=== PATIENT | male | born 1970 | race Caucasian/White ===

== ENCOUNTER 2025-03-03 17:43 | Emergency (ER) | payer SELFPAY ==
[2025-03-03 17:56] VITALS: BP 123/86; PULSE 90; O2SAT 100
[2025-03-03 18:00] VITALS: BP 111/77; PULSE 85; RESP 20; TEMP 37; O2SAT 98; BMI 27.3
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
--- NOTE | 2025-03-03 19:11 | MHC.EDTECH ---
EKG DELAYED PATIENT NOT IN WAITING ROOM 1909
--- NOTE | 2025-03-03 19:21 | MHC.EDTECH ---
NO ANSWER ON SECOND CALL 1920
--- NOTE | 2025-03-03 19:45 | MHC.EDTECH ---
3RD CALL NO ANSWER 1944
== END 2025-03-03 20:14 | disposition left against medical advice (07) ==
PROVIDERS: Emergency Provider Emergency Medicine
DX: R10.9 Unspecified abdominal pain (principal)
CPT/HCPCS: 99281

== ENCOUNTER 2025-03-10 22:54 | Emergency (ER) | payer MEDICAID, SELFPAY ==
--- NOTE | 2025-03-10 | ECG_ITS ---
Test Reason : CHEST PAIN Blood Pressure : */* mmHG Vent. Rate : 86 BPM Atrial Rate : 86 BPM P-R Int : 170 ms QRS Dur : 78 ms QT Int : 364 ms P-R-T Axes : 72 8 66 degrees QTcB Int : 435 ms Normal sinus rhythm Normal ECG No previous ECGs available Referred By: Syd Hendrickson Electronically Signed By: BAKARI MULTANI MD
--- NOTE | ~2025-03-10 | XR_ITS ---
CLINICAL HISTORY: CP 1 view chest x-ray Comparison: None Findings: Lungs are clear without acute infiltrates. No pneumothorax. Heart size normal. No acute bony abnormalities. Impression: No acute processes This document has been electronically signed by: Alex Eisenberg MD on 03/11/2025 00:24:51
[2025-03-10 23:14] VITALS: BP 128/84; PULSE 91; RESP 18; TEMP 36.7; O2SAT 95; BMI 22.9
[2025-03-10 23:23] VITALS: BP 167/102; PULSE 115; O2SAT 99
[2025-03-10 23:24] VITALS: BP 117/78; PULSE 89; RESP 16; O2SAT 96
--- NOTE | 2025-03-10 23:25 | ED_ITS ---
HPI - Chest Pain General Chief Complaint: Chest Pain Stated Complaint: chest pain x2 hrs Time Seen by Provider: 03/10/25 23:12 Source: patient, EMS and health informatics advisor Mode of arrival: EMS Limitations: no limitations History of Present Illness ED Provider: DR. Hendrickson HPI narrative: 54-year-old male came in for evaluation of chest pain started after he smoked an unknown white powder that he bought from the street earlier today, pain was mid chest area with no radiation, was associated with some shortness of breath and anxiety, no fever, no chills, pain now is improving and subsiding still localized to the mid chest, no clear aggravating factor, no clear relieving factor, no known past medical history. History of remote drug use has been clean for many years. Related Data Allergies Allergy/AdvReac Type Severity Reaction Status Date / Time No Known Allergies Allergy Verified 03/10/25 23:23 Review of Systems 2 Review of Systems: All other systems are reviewed and are negative Constitutional: Reports as per HPI and Reports no additional constitutional complaints Eyes: Reports as per HPI and Reports no additional eye complaints Reports system reviewed and no additional complaints, except as documented Cardiovascular: Reports as per HPI and Reports no additional cardiovascular complaints Respiratory: Reports as per HPI and Reports no additional respiratory complaints Gastrointestinal: Reports as per HPI and Reports no additional gastrointestinal complaints Genitourinary: Reports no additional female genitourinary complaints Musculoskeletal: Reports no additional musculoskeletal complaints Skin/Breast: Reports system reviewed and no additional complaints, except as docu Psychiatric: Reports no additional psychiatric complaints Endocrine: Reports no additional endocrine complaints Hematologic/Lymphatic: Reports no additional hematologic/lymphatic complaints Allergic/Immunologic: Reports no additional allergic/immunologic complaints Reports system reviewed and no additional complaints, except as documented and Reports Abnormal speech present [facility] Social History Social History Smoked in Last 30 Days: No Use of substances other than those prescribed or required for medical reasons: Yes Substance Use Type: Unknown Advance Directives: No Advance Directives Information Provided: Yes Physical Exam 2 Vital Signs: Vital Signs: Last Vital Signs Temp 97.9 F 03/11/25 03:59 Pulse 62 03/11/25 03:59 Resp 20 03/11/25 03:59 BP 103/72 03/11/25 03:59 Pulse Ox 96 03/11/25 03:59 O2 Del Method Room Air 03/11/25 03:59 BMI result Body Mass Index 22.9 Vital signs have been reviewed and appear to be correct. Blood pressure elevated. Heart rate normal. Respiratory rate normal. Temperature normal. Oxygen saturation normal. Appearance: Alert. Oriented X3. No acute distress. Head: Normal external exam. Normocephalic. Atraumatic. No Rodrigues signs noted. No raccoon eyes noted Eyes: PERRLA. EOMI. Conjunctiva and sclera normal. Eyelids normal. ENT: TM's Normal. Pharynx normal. Uvula midline. Moist mucous membranes. No trismus noted. No drooling noted. No muffled voice noted. Neck: Normal inspection. Neck supple. FROM. No adenopathy. Thyroid Normal. No meningeal signs. No neck mass noted. CVS: Normal heart rate and rhythm. Heart sound normal. No murmurs noted. Pulses normal throughout. Respiratory: No respiratory distress. Painless inspiration. Breath sounds normal. No wheezes/rales/rhonchi noted. Chest nontender. No accessory muscle usage noted or decreased air movement noted. Abdomen: Soft and nontender. Bowel sounds normal in all 4 quadrants. No distention noted. No organomegaly noted. No visible injury noted. Back: No CVA tenderness. Full range of motion noted. Skin: Skin warm and dry. Normal skin color. Normal skin turgor. No rashes/lesions/lacerations noted. Extremities: No lower extremity edema. Extremities exhibit normal range of motion. Extremities nontender. Neuro: Oriented X 3. Cranial nerve exam: II-XII are grossly intact No motor deficit. No sensory deficit. Reflexes normal. Course Reevaluation(s) Reevaluation #1: Pain is much better now, patient was instructed to avoid drug use. Will reassure and discharge. Time: 03:15 Medical Decision Making Differential Diagnosis Differential Diagnoses: The differential diagnosis associated with the presentation includes (Drug induced ACS, pneumonia, pneumothorax, pleural effusion, electrolyte derangement, severe anemia, anxiety.) Admission/Observation Consideration of admission/observation: Escalation of care including admission/observation considered Lab Data MDM Lab Attestation statement: I reviewed the patient's lab results. 03/10/25 23:34 03/10/25 23:34 Labs: Lab Results 03/10/25 03/11/25 03/11/25 Range/Units 23:34 02:06 02:07 WBC 6.4 (4.8-10.8) X10*3/uL RBC 3.43 L (4.60-5.80) X10*6/uL Hgb 11.5 L (14.0-18.0) g/dl Hct 33.6 L (42.0-52.0) % MCV 98.0 (80.0-98.0) fL MCH 33.5 H (27.0-33.0) pg MCHC 34.2 (31.0-36.0) g/dl RDW 11.8 (11.0-16.0) % Plt Count 188 (160-400) X10*3/uL MPV 9.8 (9.4-12.4) fL Immature Gran % (Auto) 0.3 (0.0-0.4) % Neut % (Auto) 73.6 H (45-73) % Lymph % (Auto) 16.8 L (20-40) % [place] % (Auto) 7.3 (2-11) % Eos % (Auto) 1.7 (0-4) % Baso % (Auto) 0.3 (0-2) % Lymph # (Auto) 1.1 L (1.2-4.9) X10*3/uL [place] # (Auto) 0.5 (0.1-1.2) X10*3/uL Eos # (Auto) 0.1 (0.0-0.4) X10*3/uL Baso # (Auto) 0.0 (0.0-0.2) X10*3/uL Abs Immat Gran (auto) 0.02 (0.00-0.03) X10*3/uL Absolute Neuts (auto) 4.7 (2.0-8.3) x10*3/uL Absolute Nucleated RBC 0.000 (0.0-0.012) X10*3/uL Nucleated RBC % (auto) 0.0 (0.0-0.2) /100WBC Sodium 144 (135-145) mmol/L Potassium 3.5 (3.3-5.1) mmol/L Chloride 107 (96-108) mmol/L Carbon Dioxide 27 (22-29) mmol/L Anion Gap 14 (12-20) BUN 14 (9-16) mg/dL Creatinine 0.89 (0.5-1.4) mg/dL Estim Creat Clear Calc 95.4 Estimated GFR > 60 Random Glucose 153 H (60-115) mg/dL Calcium 8.6 (8.4-10.2) mg/dL Total Bilirubin 0.3 (0.0-1.0) mg/dL Direct Bilirubin 0.1 (0.0-0.5) mg/dL AST 23 (5-37) U/L ALT 14 (0-40) U/L Alkaline Phosphatase 80 (39-117) U/L Troponin I High Sens < 2.7 < 2.7 (<3.5-35.0) ng/L B-Natriuretic Peptide < 10 (<100) pg/mL Total Protein 6.8 (6.5-8.0) g/dL Albumin 3.7 (3.5-5.0) g/dL Lipase 17 (8-78) U/L Urine Color Yellow Urine Appearance Clear Urine pH 8.0 (5.0-9.0) Ur Specific [place] 1.020 (1.005-1.025) Urine Protein Negative (Neg-Trace) mg/dL Urine Glucose (UA) Negative (Negative) mg/dL Urine Ketones Negative (Negative) mg/dL Urine Blood Negative (Negative) Urine Nitrite Negative (Negative) Ur Leukocyte Esterase Negative (Negative) Digoxin < 0.2 L (0.8-2.0) ng/mL Influenza Type A (PCR) NEGATIVE (Negative) Influenza Type B (PCR) NEGATIVE (Negative) RSV RNA Qual (PCR) NEGATIVE (Negative) SARS-CoV-2 RNA (RT-PCR) NEGATIVE (Negative) Independent Interpretation I performed an independent interpretation of an: EKG (Normal sinus rhythm at 86 beats per minutes, normal intervals, no ST-T changes.) and Plain X-Ray (Chest: No acute intrathoracic pathology.) Radiology Impression Discussion of test interpretation with radiology: I have reviewed the radiologist's reading. Discharge Plan Discharge Clinical Impression: Chest pain, Substance use disorder Patient Disposition: Home, Self-Care Instructions: Polysubstance Use Disorder (ED) Print Language: Sami
[2025-03-10 23:41] LABS: Basophils Percent Auto 0.3 % (0-2); Eosinophils Absolute Auto 0.1 X10*3/uL (0.0-0.4); Eosinophils Percent Auto 1.7 % (0-4); Hematocrit 33.6 % (42.0-52.0); Hemoglobin 11.5 g/dl (14.0-18.0); Imm Gran Abs Auto 0.02 X10*3/uL (0.00-0.03); Imm Gran Pct Auto 0.3 % (0.0-0.4); Lymphocytes Absolute Auto 1.1 X10*3/uL (1.2-4.9); Lymphocytes Percent Auto 16.8 % (20-40); MANUAL DIFF FLAG NO; Mean Corpuscular HGB Conc 34.2 g/dl (31.0-36.0); Mean Corpuscular Hemoglobin 33.5 pg (27.0-33.0); Mean Platelet Volume 9.8 fL (9.4-12.4); Monocytes Absolute Auto 0.5 X10*3/uL (0.1-1.2); Monocytes Percent Auto 7.3 % (2-11); Neutrophils Absolute Auto 4.7 x10*3/uL (2.0-8.3); Neutrophils Percent Auto 73.6 % (45-73); Platelet Count 188 X10*3/uL (160-400); Red Blood Count 3.43 X10*6/uL (4.60-5.80); Red Cell Distribution Width 11.8 % (11.0-16.0); White Blood Count 6.4 X10*3/uL (4.8-10.8)
[2025-03-11 00:02] LABS: Alanine Aminotransferase 14 U/L (0-40); Albumin Level 3.7 g/dL (3.5-5.0); Alkaline Phosphatase 80 U/L (39-117); Anion Gap 14 (12-20); Aspartate Amino Transferase 23 U/L (5-37); Bilirubin Direct 0.1 mg/dL (0.0-0.5); Bilirubin Total 0.3 mg/dL (0.0-1.0); Blood Urea Nitrogen 14 mg/dL (9-16); Calcium 8.6 mg/dL (8.4-10.2); Carbon Dioxide 27 mmol/L (22-29); Chloride 107 mmol/L (96-108); Creatinine Clr Calc Pharmacy 95.4; Estimated Glomerular Filt Rate > 60; Glucose Random 153 mg/dL (60-115); Lipase 17 U/L (8-78); Potassium 3.5 mmol/L (3.3-5.1); Sodium 144 mmol/L (135-145); Total Protein 6.8 g/dL (6.5-8.0)
[2025-03-11 00:05] LABS: B Type Natriuretic Peptide < 10 pg/mL (<100)
[2025-03-11 00:10] LABS: Troponin-I High Sensitivity < 2.7 ng/L (<3.5-35.0)
[2025-03-11 00:19] LABS: Influenza A PCR NEGATIVE (Negative); Influenza B PCR NEGATIVE (Negative); Resp Syncy Virus RNA Qual PCR NEGATIVE (Negative); SARS COV2 PCR INHOUSE NEGATIVE (Negative)
[2025-03-11 02:15] LABS: Appearance Urine Clear; Color Urine Yellow; Glucose Urine UA Negative (Negative); Leukocyte Esterase Urine Negative (Negative); Nitrite Urine Negative (Negative); Urine Blood Negative (Negative); Urine Ketones Negative (Negative); Urine Protein Negative (Neg-Trace)
[2025-03-11 02:36] LABS: Troponin-I High Sensitivity < 2.7 ng/L (<3.5-35.0)
[2025-03-11 02:37] LABS: Digoxin < 0.2 ng/mL (0.8-2.0)
[2025-03-11 03:59] VITALS: BP 103/72; PULSE 62; RESP 20; TEMP 36.6; O2SAT 96
[2025-03-11 05:56] VITALS: BP 111/58; PULSE 80; RESP 16; TEMP 36.7; O2SAT 98
== END 2025-03-11 06:14 | disposition home or self-care (01) ==
PROVIDERS: Emergency Provider Emergency Medicine
DX: R07.89 Other chest pain (principal); R06.02 Shortness of breath; F41.9 Anxiety disorder, unspecified; F19.90 Other psychoactive substance use, unspecified, uncomplicated; Z03.818 Encounter for observation for suspected exposure to other biological agents ruled out
CPT/HCPCS: 0241U; 36415; 71045; 80048; 80076; 80162; 81003; 83690; 83880; 84484; 85025; 93005; 99284; 99285

== ENCOUNTER → 2025-03-10 23:12 | Outpatient (BNV) | payer MEDICAID, SELFPAY | PROVIDERS: Emergency Provider Emergency Medicine; Visit Provider Radiology Diagnostic Radiology | DX: R07.9 Chest pain, unspecified (principal) | CPT/HCPCS: 71045 ==

== ENCOUNTER → 2025-03-10 23:15 | Outpatient (BNV) | payer MEDICAID, SELFPAY | PROVIDERS: Emergency Provider Emergency Medicine; Visit Provider Internal Medicine Cardiovascular Disease | DX: R00.0 Tachycardia, unspecified (principal) | CPT/HCPCS: 93010 ==

== ENCOUNTER 2025-03-12 00:42 | Emergency (ER) | payer MEDICAID, SELFPAY ==
--- NOTE | 2025-03-12 | ECG_ITS ---
Test Reason : CP Blood Pressure : */* mmHG Vent. Rate : 115 BPM Atrial Rate : 115 BPM P-R Int : 186 ms QRS Dur : 76 ms QT Int : 324 ms P-R-T Axes : 71 3 73 degrees QTcB Int : 448 ms Sinus tachycardia Possible Left atrial enlargement Borderline ECG When compared with ECG of 10-Mar-2025 23:15, No significant change was found Referred By: Generic ED Physician Electronically Signed By: BAKARI MULTANI MD
[2025-03-12 00:51] VITALS: BP 150/91; PULSE 119; RESP 18; TEMP 37.6; O2SAT 97; BMI 22.0
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
--- NOTE | 2025-03-12 01:22 | ED_ITS ---
HPI - General Adult General Chief complaint: General Medical Stated complaint: CP Time Seen by Provider: 03/12/25 00:53 Related Data Allergies Allergy/AdvReac Type Severity Reaction Status Date / Time No Known Allergies Allergy Verified 03/12/25 00:54 [facility] Social History Social History Substance Use Type: Unknown Advance Directives: No Advance Directives Information Provided: Yes Physical Exam ED Vital Signs: Vital Signs - 24 hr 03/12/25 00:51 Temperature 99.6 F Pulse Rate 119 H Respiratory Rate 18 Blood Pressure 150/91 H Pulse Oximetry 97 Oxygen Delivery Method Room Air BMI result Body Mass Index 22.0 Course Course Course Narrative: The patient received an alarming phone call, he spontaneously burst into tears and ran out of the emergency room he was not assessed Discharge Plan Discharge Clinical Impression: Chest pain Patient Disposition: Left Without Being Seen
== END 2025-03-12 01:10 | disposition left against medical advice (07) ==
PROVIDERS: Emergency Provider Emergency Medicine; PCP Dentist General Practice
DX: R07.9 Chest pain, unspecified (principal); Z53.21 Procedure and treatment not carried out due to patient leaving prior to being seen by health care provider
CPT/HCPCS: 93005; 99281; 99283

== ENCOUNTER → 2025-03-12 00:44 | Outpatient (BNV) | payer MEDICAID, SELFPAY | PROVIDERS: Emergency Provider Emergency Medicine; PCP Dentist General Practice; Visit Provider Internal Medicine Cardiovascular Disease | DX: R00.0 Tachycardia, unspecified (principal) | CPT/HCPCS: 93010 ==

== ENCOUNTER 2025-03-18 09:58 | Emergency (ER) | payer MEDICAID, SELFPAY ==
--- NOTE | 2025-03-18 | ECG_ITS ---
Test Reason : CHEST PAIN Blood Pressure : */* mmHG Vent. Rate : 117 BPM Atrial Rate : 117 BPM P-R Int : 176 ms QRS Dur : 76 ms QT Int : 314 ms P-R-T Axes : 78 0 74 degrees QTcB Int : 438 ms Sinus tachycardia Nonspecific ST abnormality Abnormal ECG When compared with ECG of 12-Mar-2025 00:44, No significant change was found Referred By: Generic ED Physician Electronically Signed By: Fran Mock
--- NOTE | 2025-03-18 11:29 | PC.NURSE ---
pt had EKG and then left the ed.
--- OUTSIDE RECORDS SUMMARY | 2025-03-18 13:36 | XMS_ITS | Clinical Summary ---
Author Organization [facility] Address [address] [place] [address] Care Team Providers Care Housing Manager Name Role Phone Unavailable Primary Care Provider Unavailabl e Allergies No known active allergies Medications Hospital, Clinic, or Other Facility Administered Medication Ordered Dose Route Frequency Start Date End Date Status aspirin chewable tablet 324 mgIndications:Chest discomfort 324 mg PO Once 03/18/2025 03/18/2025 Ended Encounters Date Type Department Care Team Description 03/18/2025 9:40 AM EDT Office Visit [facility] [address] [place] [id number] Chest discomfort 03/18/2025 Travel 03/09/[address] [facility] [address] [place] [phone] Rahat Mcgraw MD NEW PT (Pt requesting new pt appt. Romanian speaking ) from Last 3 Months Social History Tobacco Use Types Packs/Day Years Used Date Smoking Tobacco: Never Assessed Sex and Gender Information Value Date Recorded Sex Assigned at Male 03/09/2025 12:09 PM EDT Legal Sex Male 1:07 PM EDT Gender Identity Male 03/09/2025 12:09 PM EDT Sexual Orientation Straight 03/09/2025 12 :09 PM EDT Last Filed Vital Signs Vital Sign Reading Time Taken Comments Blood Pressure 161/118 03/18/2025 9:15 AM EDT Pulse 138 03/18/2025 9:15 AM EDT Temperature - - Respiratory Rate - - Oxygen Saturation 97% 03/18/2025 9:15 AM EDT RA Inhaled Oxygen Concentration - - Weight - - Height - - Body Mass Index - - Plan of Treatment Upcoming Encounters Date Type Department Care Team ([facility] st Contact Info) Description 04/10/2025 9:30 AM EDT Office Visit [facility] [address] [place] [phone] Lisset Silva DO [address] [place] [address] [place] [address] Health Maintenance Due Date Last Done Comments CT Colonography 1971 Colonoscopy 1971 Colorectal Cancer Screening 1971 Depression Screening 1971 FIT DNA/Cologuard 1971 FIT 1971 FOBT 1971 HIV Screening 1971 Lipid Panel 1971 SDOH Screening 1971 Sigmoidoscopy 1971 Disability Screening 1971 Alcohol/Substance Use Screening 1983 Tobacco Screening 1983 Hepatitis C Screening 1989 Hepatitis B Vaccines (1 of 3 - 19+ 3-dose series) 1990 Pneumococcal Vaccine: 50+ Years (2 of 2 - PCV) 2021 06/07/2015, 06/29/2013, 11/16/2010 Zoster Vaccines (1 of 2) 2021 COVID-19 Vaccine (1 - 2023-2 5 season) 2024 Influenza Vaccine (#1) 2024 4, 07/13/2013, 11/16/2010 DTaP/Tdap/Td Vaccines (2 - T d or Tdap) 06/07/2025 06/07/2015 RSV Patients and Patients Aged 60 years or older (1 - 1-dose 75+ series) 2046 Meningococcal Vaccine Aged Out 01/08/2016 No esteban juan eligible based on patient's age to complete this topic HIB Vaccines Aged Out No longer eligi ble based on patient's age to complete this topic HPV Vaccines Aged Out No longer eligi ble based on patient's age to complete this topic Hepatitis A Vaccines Aged Out No long er eligible based on patient's age to complete this topic IPV Vaccines Aged Out No longer eligi ble based on patient's age to complete this topic Meningococcal B Vaccine Aged Out No l onger eligible based on patient's age to complete this topic RSV under 20 months Aged Out No longe r eligible based on patient's age to complete this topic Rotavirus Vaccines Aged Out No longer eligible based on patient's age to complete this topic [facility] MEDICAID STAND ADULT
--- OUTSIDE RECORDS SUMMARY | 2025-03-18 13:36 | XMS_ITS | Encounter Summary ---
Author Organization [facility] Address [address] [place] [address] Care Team Providers Care Operations Executive Name Role Phone Unavailable Primary Care Provider Unavailabl e Encounter Details Date Type Department Care Team (Latest Contact Info) Description 03/18/2025 Travel Social History Tobacco Use Types Packs/Day Years Used Date Smoking Tobacco: Never Assessed Sex and Gender Information Value Date Recorded Sex Assigned at Male 03/09/2025 12:09 PM EDT Legal Sex Male 1:07 PM EDT Gender Identity Male 03/09/2025 12:09 PM EDT Sexual Orientation Straight 03/09/2025 12 :09 PM EDT documented as of this encounter Plan of Treatment Upcoming Encounters Date Type Department Care Team (Late st Contact Info) Description 04/10/2025 9:30 AM EDT Office Visit [facility] [address] [place] [address] Lisset Silva DO [address] [place] [address] documented as of this encounter Visit Diagnoses Not on filedocumented in this encounter
--- OUTSIDE RECORDS SUMMARY | 2025-03-18 13:36 | XMS_ITS | Encounter Summary ---
Author Organization [employer] Address [address] [facility] 7[address] [place] [address] Care Team Providers Care Residential Sales Associate Name Role Phone Unavailable Primary Care Provider Unavailabl e Encounter Details Date Type Department Care Team (Late st Contact Info) Description 03/18/2025 9:40 AM EDT Office Visit [facility] [address] [place] [address] Chest discomfort Social History Tobacco Use Types Packs/Day Years Used Date Smoking Tobacco: Never Assessed Sex and Gender Information Value Date Recorded Sex Assigned at Male 03/09/2025 12:09 PM EDT Legal Sex Male 1:07 PM EDT Gender Identity Male 03/09/2025 12:09 PM EDT Sexual Orientation Straight 03/09/2025 12 :09 PM EDT documented as of this encounter Last Filed Vital Signs Vital Sign Reading Time Taken Comments Blood Pressure 161/118 03/18/2025 9:15 AM EDT Pulse 138 03/18/2025 9:15 AM EDT Temperature - - Respiratory Rate - - Oxygen Saturation 97% 03/18/2025 9:15 AM EDT RA Inhaled Oxygen Concentration - - Weight - - Height - - Body Mass Index - - documented in this encounter Plan of Treatment Upcoming Encounters Date Type Department Care Team (Late st Contact Info) Description 04/10/2025 9:30 AM EDT Office Visit [facility] [address] [place] [address] Lisset Silva DO [address] [place] [address] documented as of this encounter Visit Diagnoses Diagnosis Chest discomfort Other chest pain documented in this encounter Administered Medications Inactive Administered Medications - up to 3 most recent administrations Medication Order MAR Action Action Date Dose Rate Site aspirin chewable tablet 324 mg 324 mg, Oral, Once, On Sun03/18/25 at 0930, For 1 doseIndications:Chest discomfort Given 03/18/2025 9:23 AM EDT 324 mg documented in this encounter
== END 2025-03-18 12:55 | disposition left against medical advice (07) ==
PROVIDERS: Emergency Provider Emergency Medicine
DX: R07.89 Other chest pain (principal)
CPT/HCPCS: 93005; 99281; 99282

== ENCOUNTER → 2025-03-18 10:02 | Outpatient (BNV) | payer MEDICAID, SELFPAY | PROVIDERS: Emergency Provider Emergency Medicine; Visit Provider Internal Medicine Cardiovascular Disease | DX: R00.0 Tachycardia, unspecified (principal) | CPT/HCPCS: 93010 ==

== ENCOUNTER 2025-03-24 11:38 | Outpatient (REF) | payer MEDICAID, SELFPAY ==
--- OUTSIDE RECORDS SUMMARY | 2025-03-24 12:18 | XMS_ITS | Encounter Summary ---
Author Organization [employer] Address [address] [place] [address] Care Team Providers Care Junior Architect Name Role Phone Unavailable Primary Care Provider Unavailabl e Encounter Details Date Type Department Care Team (Latest Contact Info) Description 03/19/2025 1:00 PM EDT Clinical Support [facility] [address] [place] [address] Jenifer Bryan RN History of substance use Social History Tobacco Use Types Packs/Day Years Used Date Smoking Tobacco: Never Assessed Depression Answer Date Recorded Patient Health Questionnaire-9 Score 14 03/19/2025 Patient Health Questionnaire-9 Score 14 03/19/2025 Last PHQ-9: Questionnaire Data Not on file 0 03/19/2025 Depression Answer Date Recorded Patient Health Questionnaire-2 Score 5 03/19/2025 Sex and Gender Information Value Date Recorded Sex Assigned at Male 03/09/2025 12:09 PM EDT Legal Sex Male 1:07 PM EDT Gender Identity Male 03/09/2025 12:09 PM EDT Sexual Orientation Straight 03/09/2025 12 :09 PM EDT documented as of this encounter Progress Notes * Jenifer Bryan RN - 03/19/2025 1:00 PM EDT Patient was seen today by this poem writer and SALLY Oneal (supervisor international reservations) regarding referral received from Dr. Griffin after being seen in the [facility] yesterday for chest pain and palpitations after smoking cocaine and phenethyl that morning. Pt being assessed for need for OBAT. Patient denies any current or past hx of opioid use. His main concern is his cocaine addiction. He uses a couple of different dealers for the cocaine. Reviewed the risk of the cocaine also being laced with other substances such as fentanyl and risk of overdose. He is aware of the risk of cardiac arrest with cocaine useas well. He has an appointment with Dr. Hall on 04/10/25. Copy of upcoming appt given to the patient. He is attending a support group today at 2:00 p.m. We explained the role of the recovery coaches who provide support and encouragement during their recovery journey. Patient states he is gratefulfor any help we can provide. documented in this encounter Plan of Treatment Upcoming Encounters Date Type Department Care Team (Late st Contact Info) Description 04/10/2025 9:30 AM EDT Office Visit [facility] [address] [place] [address] Lisset Silva DO [address] [place] [address] documented as of this encounter Visit Diagnoses Diagnosis History of substance use documented in this encounter Additional Health Concerns Assessment Noted Time PHQ-9 Depression Total Score: 14 025 3:48 PM EDT documented as of this encounter
[2025-03-27 00:34] LABS: TS Negative Control Passed; TS Panel A 0; TS Panel B 0; TS Positive Control Passed; TSpotTB Negative (Negative)
== END 2025-03-24 11:39 | disposition home or self-care (01) ==
LOC: HO.HHCL 11:38
PROVIDERS: Visit Provider Internal Medicine
DX: Z11.1 Encounter for screening for respiratory tuberculosis (principal)
CPT/HCPCS: 36415; 86481

== ENCOUNTER 2025-04-14 16:56 | Emergency (ER) | payer MEDICAID, SELFPAY ==
[2025-04-14 17:11] VITALS: BP 124/76; PULSE 110; O2SAT 96
--- OUTSIDE RECORDS SUMMARY | 2025-04-14 18:49 | XMS_ITS | Encounter Summary ---
Author Organization [employer] Address [address] [facility] [address] [place] [address] Care Team Providers Care Reproductive Endocrinologist Name Role Phone Lisset Silva DO Primary Care Provider [phone] Reason for Visit * Reason Comments Establish Care Encounter Details Date Type Department Care Team ([facility] st Contact Info) Description 04/10/2025 9:30 AM EDT Office Visit [facility] [address] [place] [address] Lisset Silva DO [address] [place] [address] Routine history and physical examination of adult (Primary Dx); Major depression, recurrent, chronic (CMS/HCC); NERY (generalized anxiety disorder); Cocaine use disorder (CMS/HCC); Tobacco dependence; BMI 23.0-23.9, adult Social History Tobacco Use Types Packs/Day Years Used Date Smoking Tobacco: Former Cigarettes Passive Smoke Exposure: Past Smokeless Tobacco: Never Tobacco Cessation:Counseling Given: Not Answered Alcohol Use Standard Drinks/Week Comments Never 0 (1 standard drink = 0.6 oz pur e alcohol) Depression Answer Date Recorded Patient Health Questionnaire-9 Score 10 04/10/2025 Patient Health Questionnaire-9 Score 10 04/10/2025 Last PHQ-9: Questionnaire Data Not on file 0 04/10/2025 Housing Stability Answer Date Recorded What is your housing situation today? I do not have housing (Staying with others, in a hotel, in a halfway, living outside on the street, on a beach, in a car, or in a park 04/01/[address] you li ve. Do you have problems with any of the following? None of the above 04/01/2025 Food Insecurity Answer Date Recorded Within the past 12 months, y ou worried that your food would run out before you got money to buy more: Sometimes True 2024 Within the past 12 months,th e food you bought just didn't last and you didn't have enough money to get more: Sometimes True 04/01/2025 Transportation Answer Date Recorded In the past 12 months, has l ack of transportation kept you from medical appts, meetings, work or from getting things needed for daily living? No 04/01/2025 Utilities Answer Date Recorded In the past 12 months, has t he [employer], gas, oil or water company threatened to shut off services in your home? No 04/01/2025 Depression Answer Date Recorded Patient Health Questionnaire-2 Score 3 04/10/2025 Internet Access Answer Date Recorded Internet Access Q1 Yes 04/01/2025 Internet Access Q2 Not on file 04/01/2025 Sex and Gender Information Value Date Recorded Sex Assigned at Male 03/09/2025 12:09 PM EDT Legal Sex Male 1:07 PM EDT Gender Identity Male 03/09/2025 12:09 PM EDT Sexual Orientation Straight 03/09/2025 12 :09 PM EDT documented as of this encounter Last Filed Vital Signs Vital Sign Reading Time Taken Comments Blood Pressure 124/82 04/10/2025 9:34 AM EDT Pulse 88 04/10/2025 9:34 AM EDT Temperature 36.7 ??C (98 ??F) 04/10/2025 9:34 AM EDT Respiratory Rate 18 04/10/2025 9:34 AM EDT Oxygen Saturation - - Inhaled Oxygen Concentration - - Weight 70.9 kg (156 lb 3.2 oz) 04/10/2025 9:34 A M EDT Height 175.3 cm (5' 9 ) 04/10/2025 9:34 AM EDT Body Mass Index 23.07 04/10/2025 9:34 AM EDT documented in this encounter Functional Status * Over the past 2 weeks, how often have you been bothered by any of the following problems? Question Answer Date of Assessment Author Patient Health Questionnaire-2 Score 3 04/10/2025 2:10 PM EDT Jossy Schulte MA * Little interest or pleasure in doing things Answer Date of Assessment Author Several days 04/10/2025 2:10 PM EDT Jossy Washburn MA * Feeling down, depressed, or hopeless Answer Date of Assessment Author More than half the days 04/10/2025 2:10 PM EDT Jossy Moreno MA * Trouble falling or staying asleep, or sleeping too much Answer Date of Assessment Author Nearly every day 04/10/2025 2:10 PM EDT Jossy Munroe MA * Feeling tired or having little energy Answer Date of Assessment Author Not at all 04/10/2025 2:10 PM EDT Jossy Washburn MA * Poor appetite or overeating Answer Date of Assessment Author Not at all 04/10/2025 2:10 PM EDT Jossy Washburn MA * Feeling bad about yourself - or that you are a failure or have let yourself or your family down Answer Date of Assessment Author Not at all 04/10/2025 2:10 PM EDT Jossy Washburn MA * Trouble concentrating on things, such as reading the newspaper or watching television Answer Date of Assessment Author More than half the days 04/10/2025 2:10 PM EDT Jossy Moreno MA * Moving or speaking so slowly that other people could have noticed? Or the opposite - being so fidgety or restless that you have been moving around a lot more than usual. Answer Date of Assessment Author More than half the days 04/10/2025 2:10 PM EDT Jossy Moreno MA * Thoughts that you would be better off or hurting yourself in some way Answer Date of Assessment Author Not at all 04/10/2025 2:10 PM EDT Jossy Washburn MA * Patient Health Questionnaire-9 Score Answer Date of Assessment Author 10 04/10/2025 2:10 PM EDT Jossy Washburn MA * How difficult have these problems made it for you to do your work, take care of things at home, or get along with other people? Answer Date of Assessment Author Not difficult at all 04/10/2025 2:10 PM EDT Jossy Gomes MA * Over the last 2 weeks, how often have you been bothered by any of the following problems? Question Answer Date of Assessment Author Feeling nervous, anxious, or on edge 3 04/10/2025 2:10 PM EDT Jossy Schulte MA Not being able to stop or control worrying 2 04/10/2025 2:10 PM EDT Jossy Schulte MA Worrying too much about different things 0 04/10/2025 2:10 PM EDT Jossy Schulte MA Trouble relaxing 1 04/10/2025 2:10 PM EDT Jossy Moreno MA Being so restless that it is hard to sit still 1 04/10/2025 2:10 PM EDT Jossy Schulte MA Becoming easily annoyed or irritable 1 04/10/2025 2:10 PM EDT Jossy Schulte MA Feeling afraid as if something awful might happen 1 04/10/2025 2:10 PM EDT Jossy Munroe MA NERY-7 Total Score 9 04/10/2025 2:10 PM EDT Jossy Schulte MA documented as of this encounter Plan of Treatment Upcoming Encounters Date Type Department Care Team (Late st Contact Info) Description 05/18/2025 9:00 AM EDT Office Visit [facility] [address] [place] [address] Lisset Silva DO [address] [place] [address] Scheduled Orders Name Type Priority Associated Diagnoses Orde r Schedule T4, Free Lab Routine Routine history and physical examination of adult Major depression, recurrent, chronic (CMS/HCC) NERY (generalized anxiety disorder) Cocaine use disorder (CMS/HCC) Tobacco dependence BMI 23.0-23.9, adult Expected: 04/10/2025 (Approximate), Expires: 04/10/2026 Lipid Panel, Standard Lab Routine Routine history and physical examination of adult Major depression, recurrent, chronic (CMS/HCC) NERY (generalized anxiety disorder) Cocaine use disorder (CMS/HCC) Tobacco dependence BMI 23.0-23.9, adult Expected: 04/10/2025 (Approximate), Expires: 04/10/2026 TSH Lab Routine Routine history and physical examination of adult Major depression, recurrent, chronic (CMS/HCC) NERY (generalized anxiety disorder) Cocaine use disorder (CMS/HCC) Tobacco dependence BMI 23.0-23.9, adult Expected: 04/10/2025 (Approximate), Expires: 04/10/2026 Vitamin D, 25-Hydroxy, Total, Immunoassay Lab Routine Routine history and physical examination of adult Major depression, recurrent, chronic (CMS/HCC) NERY (generalized anxiety disorder) Cocaine use disorder (CMS/HCC) Tobacco dependence BMI 23.0-23.9, adult Expected: 04/10/2025 (Approximate), Expires: 04/10/2026 Hepatic Function Panel Lab Routine Routine history and physical examination of adult Major depression, recurrent, chronic (CMS/HCC) NERY (generalized anxiety disorder) Cocaine use disorder (CMS/HCC) Tobacco dependence BMI 23.0-23.9, adult Expected: 04/10/2025 (Approximate), Expires: 04/10/2026 Hemoglobin A1c Lab Routine Routine history and physical examination of adult Major depression, recurrent, chronic (CMS/HCC) NERY (generalized anxiety disorder) Cocaine use disorder (CMS/HCC) Tobacco dependence BMI 23.0-23.9, adult Expected: 04/10/2025 (Approximate), Expires: 04/10/2026 CBC Lab Routine Routine history and physical examination of adult Major depression, recurrent, chronic (CMS/HCC) NERY (generalized anxiety disorder) Cocaine use disorder (CMS/HCC) Tobacco dependence BMI 23.0-23.9, adult Expected: 04/10/2025, Expires: 04/10/2026 Basic Metabolic Panel Lab Routine Routine history and physical examination of adult Major depression, recurrent, chronic (CMS/HCC) NERY (generalized anxiety disorder) Cocaine use disorder (CMS/HCC) Tobacco dependence BMI 23.0-23.9, adult Expected: 04/10/2025 (Approximate), Expires: 04/10/2026 Hepatitis B surface antigen, EIA Lab Routine Routine history and physical examination of adult Major depression, recurrent, chronic (CMS/HCC) NERY (generalized anxiety disorder) Cocaine use disorder (CMS/HCC) Tobacco dependence BMI 23.0-23.9, adult Expected: 04/10/2025 (Approximate), Expires: 04/10/2026 Chlamydia/N. Gonorrhoeae RNA, TMA, Urogenitial Microbiology Routine Routine history and physical examination of adult Major depression, recurrent, chronic (CMS/HCC) NERY (generalized anxiety disorder) Cocaine use disorder (CMS/HCC) Tobacco dependence BMI 23.0-23.9, adult Ordered: 04/10/2025 HIV-1/2 Antigen and Antibodies, Fourth Generation, with Reflexes Lab Routine Routine history and physical examination of adult Major depression, recurrent, chronic (CMS/HCC) NERY (generalized anxiety disorder) Cocaine use disorder (CMS/HCC) Tobacco dependence BMI 23.0-23.9, adult Expected: 04/10/2025 (Approximate), Expires: 04/10/2026 Hepatitis C Antibody with Reflex to HCV, RNA, Quantitative, Real-Time PCR Lab Routine Routine history and physical examination of adult Major depression, recurrent, chronic (CMS/HCC) NERY (generalized anxiety disorder) Cocaine use disorder (CMS/HCC) Tobacco dependence BMI 23.0-23.9, adult Expected: 04/10/2025, Expires: 04/10/2026 RPR (Monitor) with Reflex to??Titer Lab Routine Routine history and physical examination of adult Major depression, recurrent, chronic (CMS/HCC) NERY (generalized anxiety disorder) Cocaine use disorder (CMS/HCC) Tobacco dependence BMI 23.0-23.9, adult Expected: 04/10/2025, Expires: 04/10/2026 Hepatitis B Surface Antibody, Qualitative Lab Routine Routine history and physical examination of adult Major depression, recurrent, chronic (CMS/HCC) NERY (generalized anxiety disorder) Cocaine use disorder (CMS/HCC) Tobacco dependence BMI 23.0-23.9, adult Expected: 04/10/2025 (Approximate), Expires: 04/10/2026 Varicella zoster antibody, IgG Lab Routine Routine history and physical examination of adult Major depression, recurrent, chronic (CMS/HCC) NERY (generalized anxiety disorder) Cocaine use disorder (CMS/HCC) Tobacco dependence BMI 23.0-23.9, adult Expected: 04/10/2025 (Approximate), Expires: 04/10/2026 Measles, Mumps, and Rubella (MMR) Antibodies??(IgG) Panel, Immune Status Lab Routine Routine history and physical examination of adult Major depression, recurrent, chronic (CMS/HCC) NERY (generalized anxiety disorder) Cocaine use disorder (CMS/HCC) Tobacco dependence BMI 23.0-23.9, adult Expected: 04/10/2025 (Approximate), Expires: 04/10/2026 Hepatitis A Antibody, Total Lab Routine Routine history and physical examination of adult Major depression, recurrent, chronic (CMS/HCC) NERY (generalized anxiety disorder) Cocaine use disorder (CMS/HCC) Tobacco dependence BMI 23.0-23.9, adult Expected: 04/10/2025 (Approximate), Expires: 04/10/2026 Hepatitis B Core Antibody, Total Lab Routine Routine history and physical examination of adult Major depression, recurrent, chronic (CMS/HCC) NERY (generalized anxiety disorder) Cocaine use disorder (CMS/HCC) Tobacco dependence BMI 23.0-23.9, adult Expected: 04/10/2025 (Approximate), Expires: 04/10/2026 documented as of this encounter Visit Diagnoses Diagnosis Routine history and physical examination of adult- Primary Major depression, recurrent, chronic (CMS/HCC) NERY (generalized anxiety disorder) Generalized anxiety disorder Cocaine use disorder (CMS/HCC) Tobacco dependence Tobacco use disorder BMI 23.0-23.9, adult documented in this encounter Additional Health Concerns Assessment Noted Time PHQ-9 Depression Total Score: 10 025 2:10 PM EDT documented as of this encounter Care Teams Reproductive Endocrinologist Relationship Specialty Start Date End Date Lisset Silva DO [address] [place] [id number] PCP - General Family Medicine 04/10/25 documented as of this encounter
== END 2025-04-14 18:24 | disposition left against medical advice (07) ==
PROVIDERS: Emergency Provider Emergency Medicine
DX: Z53.21 Procedure and treatment not carried out due to patient leaving prior to being seen by health care provider (principal); I10 Essential (primary) hypertension

== ENCOUNTER 2025-06-08 10:30 | Outpatient (REF) | payer MEDICAID, SELFPAY ==
--- NOTE | ~2025-06-08 | XR_ITS ---
EXAMINATION: XR ANKLE 3 OR MORE VIEWS LEFT HISTORY: PAIN COMPARISON: There are no prior studies available for comparison. FINDINGS: Three views of the left ankle are submitted. Osseous mineralization is normal. The patient is status post internal fixation of the medial malleolus. Two screws are seen in the talus. There is collapse of the talus. There is no fracture or dislocation. 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 The soft tissues are unremarkable. XR/XR ankle LT min 3V IMPRESSION: Post surgical changes as described. Collapse of the talus. Severe osteoarthritis of the tibiotalar articulation. Electronically signed by: Rubén Hanley MD 06/08/2025 12:11 PM EDT
--- OUTSIDE RECORDS SUMMARY | 2025-06-08 11:09 | XMS_ITS | Clinical Summary ---
Author Organization [facility] Address [address] [place] [address] Phone Care Team Providers Care Manager Food Safety Name Role Phone Physician, Pcp Unknown Primary Care Provider Di vailable Allergies No known active allergies Social History Tobacco Use Types Packs/Day Years Used Date Smoking Tobacco: Every Day Cigarettes Smokeless Tobacco: Never Tobacco Cessation:Ready to Q uit: Not Asked; Counseling Given: Not Answered Sex and Gender Information Value Date Recorded Sex Assigned at Male 01/24/2025 4:45 AM EDT Legal Sex Male 2:51 AM EDT Gender Identity Male 01/24/2025 4:45 AM EDT Sexual Orientation Choose not to disclose 2024 4:45 AM EDT Obstetrics History Last Filed Vital Signs Vital Sign Reading Time Taken Comments Blood Pressure 105/72 01/24/2025 8:41 AM EDT Pulse 68 01/24/2025 8:41 AM EDT Temperature 36.9 C (98.4 F) 01/24/2025 8:41 AM EDT Respiratory Rate 18 01/24/2025 8:41 AM EDT Oxygen Saturation 99% 01/24/2025 8:41 AM EDT Inhaled Oxygen Concentration - - Weight 81.2 kg (179 lb) 01/24/2025 8:41 AM EDT Height 177.8 cm (5' 10 ) 01/24/2025 8:41 AM EDT Body Mass Index 25.68 01/24/2025 8:41 AM EDT Plan of Treatment Health Maintenance Due Date Last Done Comments DTaP,Tdap,and Td Vaccines (1 - Tdap) 1990 Hepatitis B Vaccines (1 of 3 - 19+ 3-dose series) 1990 Pneumococcal Vaccine: 50+ Ye ars (1 of 2 - PCV) 1990 Zoster Vaccines (1 of 2) 2021 COVID-19 Vaccine (1 - 2023-2 5 season) 2024 Depression Screening 10/29/2024 Cholesterol Screening (Lipid Panel) 01/24/2025 Colorectal Cancer Screening: Colonoscopy 01/24/2025 HIV Screening 01/24/2025 Hepatitis C Screening 01/24/2025 Social Influencers of Health Screening 01/24/2025 Influenza Vaccine (#1) 2025 HIB Vaccines Aged Out No longer eligi [...] on patient's age to complete this topic MMR Vaccines Aged Out No longer eligi ble based on patient's age to complete this topic Meningococcal ACWY Vaccine Aged Out N o longer eligible based on patient's age to complete this topic Meningococcal B Vaccine Aged Out No l onger eligible based on patient's age to complete this topic RSV Immunization Patients Un tamanna 20 months Aged Out No longer eligible b ased on patient's age to complete this topic Varicella Vaccines Aged Out No longer eligible based on patient's age to complete this topic Additional Health Concerns Infection Onset Date Last Indicated Coronavirus 01/24/2025 01/24/2025 Insurance MEDICAID - [place] Care Teams Manager Food Safety Relationship Specialty Start Date End Date Physician, Pcp Unknown PCP - General 01/24/25
--- OUTSIDE RECORDS SUMMARY | 2025-06-08 11:09 | XMS_ITS | Encounter Summary ---
Author Organization [employer] Address [address] [place] [address] Care Team Providers Care Horseback Riding Instructor Name Role Phone Lisset Silva Primary Care Provider [phone] Encounter Details Date Type Department Care Team (Latest Contact Info) Description 06/08/2025 Travel Social History Tobacco Use Types Packs/Day Years Used Date Smoking Tobacco: Former Cigarettes Passive Smoke Exposure: Past Smokeless Tobacco: Never Alcohol Use Standard Drinks/Week Comments Never 0 (1 standard drink = 0.6 oz pur e alcohol) Depression Answer Date Recorded Patient Health Questionnaire-9 Score 4 04/27/2025 Patient Health Questionnaire-9 Score 4 04/27/2025 Last PHQ-9: Questionnaire Data Not on file 0 04/27/2025 Housing Stability Answer Date Recorded What is your housing situation today? I do not have housing (Staying with others, in a hotel, in a assisted, living outside on the street, on a [...] the past 12 months, has t he electric, gas, oil or water company threatened to shut off services in your home? No 04/01/2025 Depression Answer Date Recorded Patient Health Questionnaire-2 Score 0 04/27/2025 Internet Access Answer Date Recorded Internet Access Q1 Yes 04/01/2025 Internet Access Q2 Not on file 04/01/2025 Sex and Gender Information Value Date Recorded Sex Assigned at Male 03/09/2025 12:09 PM EDT Legal Sex Male 1:07 PM EDT Gender Identity Male 03/09/2025 12:09 PM EDT Sexual Orientation Straight 03/09/2025 12 :09 PM EDT documented as of this encounter Plan of Treatment Not on file documented as of this encounter Visit Diagnoses Not on filedocumented in this encounter Additional Health Concerns Assessment Noted Time PHQ-9 Depression Total Score: 4 04/27/20 25 12:28 PM EDT documented as of this encounter Care Teams Horseback Riding Instructor Relationship Specialty Start Date End Date Lisset Silva DO [address] [place] [address] PCP - General Family Medicine 04/10/25 documented as of this encounter
== END 2025-06-08 10:31 | disposition home or self-care (01) ==
LOC: HO.HHCX 10:30
PROVIDERS: PCP Family Medicine; Visit Provider Family Medicine
DX: Z98.890 Other specified postprocedural states (principal); Z87.81 Personal history of (healed) traumatic fracture
CPT/HCPCS: 73610

== ENCOUNTER → 2025-06-08 10:39 | Outpatient (BNV) | payer MEDICAID, SELFPAY | PROVIDERS: PCP Family Medicine; Visit Provider Radiology Diagnostic Radiology | DX: M19.072 Primary osteoarthritis, left ankle and foot (principal) | CPT/HCPCS: 73610 ==

== ENCOUNTER 2025-09-21 22:28 | Emergency (ER) | payer MEDICAID, SELFPAY ==
[2025-09-21 22:30] VITALS: BP 114/70; PULSE 101; RESP 20; TEMP 36.4; O2SAT 97; BMI 24.4
--- OUTSIDE RECORDS SUMMARY | 2025-09-21 22:51 | XMS_ITS | Clinical Summary ---
Author Organization [employer] Address [address] [place] [address] Care Team Providers Care Software Asset Management Analyst Name Role Phone Lisset Silva Primary Care Provider Allergies No known active allergies Medications * This document contains information received from the source organization and may not represent a complete record from that organization. fluticasone (Flonase) 50 MCG/ACT nasal sprayIndication s:Acute non-recurrent maxillary sinusitis Administer 1 spray into each nostril Once per day. Shake gently. Before first use, prime pump. After use, clean tip and replace cap. 16 g 2 5 03/24/20 26 Active cetirizine (ZyrTEC) 10 MG tabletIndicatio ns:Acute non-recurrent maxillary sinusitis Take 1 tablet (10 mg) by mouth Once per day. 30 tablet 2 5 Active sertraline (Zoloft) 25 MG tablet Take 1 tablet (25 mg) by mouth Once per day. 30 tablet 2 5 04/10/20 26 Active hydrOXYzine pamoate (Vistaril) 25 MG capsule Take 1 capsule (25 mg) by mouth every 6 (six) hours if needed for anxiety. 30 capsule 2 5 04/10/20 26 Active Diclofenac Sodium 1 % gel Apply 2 g topically if needed in the morning, at noon, in the evening, and at bedtime (pain). 150 g 3 5 Active naproxen (Naprosyn) 500 MG tablet Take 1 tablet (500 mg) by mouth if needed in the morning and at bedtime for mild pain. 40 tablet 1 5 06/08/20 26 Active acetaminophen (Tylenol 8 Hour) 650 MG ER tablet Take 1 tablet (650 mg) by mouth every 8 (eight) hours if needed for mild pain. Do not crush, chew, or split. 50 tablet 2 5 06/08/20 Active docusate sodium (Colace) 100 MG capsule Take 1 capsule (100 mg) by mouth 2 times daily. 180 capsule 3 5 06/08/20 26 Active polycarbophil (Fibercon) 625 MG tablet Take 1 tablet (625 mg) by mouth 2 times daily. 180 tablet 3 5 06/08/20 26 Active polyethylene glycol, PEG, 3350 (MiraLax) 17 GM/SCOOP powder Take 17 g by mouth if needed each day (constipation). 527 g 2 5 06/08/20 26 Active Active Problems Problem Noted Date Diagnosed Date Status post ORIF of fracture of ankle 06/08/2025 Tobacco dependence 04/10/2025 Seasonal allergies 04/10/2025 Chronic pain of left ankle 03/24/2025 Major depression, recurrent, chronic 03/19/2025 Generalized anxiety disorder 03/19/2025 Cocaine use disorder (CMS/HCC) 03/19/2025 Resolved Problems Problem Noted Date Diagnosed Date Resolved Date Acute maxillary sinusitis 03/24/2025 Assessment & Plan (03/24/2025 12:04 PM EDT): I instructed patient if symptoms persist or worsen to report back Tuberculosis screening 03/24/202504/10 Chest discomfort 03/18/2025 04/10/2025 Assessment & Plan (03/18/2025 2:50 PM EDT): PT emergently transferred to ER for r/o ACS in setting of recent cocaine use, tachycardia and chest pain. He will return to establish care. Pt left with ambulance. Elevated blood pressure reading 03/18/2025 04/10/2025 Encounters Date Type Department Care Team Description 06/23/2025 Patient Outreach [facility] [address] [place] [address] [place] Recovery Supports 06/23/2025 Patient Outreach [facility] [address] [place] [address] [place] Recovery Supports from Last 3 Months Immunizations Immunization Administration Dates Next Due Influenza, Unspecified 09/23/2014,07/13/2013, Meningococcal MCV4P [id number] 01/08/2016 Pneumococcal Polysaccharide PPSV23 06/07/2015,,11/16/2010 Tdap 06/07/2015 Family History Medical History Relation Name Comments No Known Problems Father Hypertension Mother No Known Problems Sister Relation Name Status Comments Father Mother Sister Social History Tobacco Use Types Packs/Day Years [...] with others, in a hotel, in a residential, living outside on the street, on a [...] Sign Reading Time Taken Comments Blood Pressure 122/70 06/08/2025 10:02 AM EDT Pulse 82 06/08/2025 10:02 AM EDT Temperature 36.6 C (97.9 F) 06/08/2025 10:02 AM EDT Respiratory Rate 21 06/08/2025 10:02 AM EDT Oxygen Saturation 98% 06/08/2025 10:02 AM EDT Inhaled Oxygen Concentration - - Weight 73 kg (161 lb) 06/08/2025 10:02 AM EDT Height 175.3 cm (5' 9 ) 06/08/2025 10:02 AM EDT Body Mass Index 23.78 06/08/2025 10:02 AM EDT Plan of Treatment Health Maintenance Due Date Last Done Comments CT Colonography 1971 Colonoscopy 1971 Colorectal Cancer Screening 1971 Dental Oral Exam 1971 Dental Prophylaxis 1971 Dental X-Ray: Bitewings 1971 FIT DNA/Cologuard 1971 FIT 1971 FOBT 1971 HIV Screening 1971 Lipid Panel 1971 Sigmoidoscopy 1971 Hepatitis C Screening 1989 Hepatitis B Vaccines (1 of 3 - 19+ 3-dose series) 1990 Pneumococcal Vaccine: 50+ Years (2 of 2 - PCV) 06/07/2016 06/07/2015, 06/29/2013, 11/16/2010 RSV Patients and Patients Aged 60 years or older (1 - Risk 50-74 years 1-dose series) 2021 Zoster Vaccines (1 of 2) 2021 COVID-19 Vaccine (1 - 2024-2 6 season) 2025 Influenza Vaccine (#1) 2025 4, 07/13/2013, 11/16/2010 SDOH Screening 04/01/2026 04/01/2025 Alcohol/Substance Use Screening 04/10/2026 04/10/2025 Depression Screening 04/27/2026 04/27/2025, 04/27/2025 Disability Screening 06/08/2026 06/08/2025 Tobacco Screening 06/08/2026 06/08/2025 Dental X-Ray: Full Mouth 01/15/2028 01/13/2025 DTaP/Tdap/Td Vaccines (3 - T d or Tdap) 04/25/2030 04/25/2020, 06/07/2015 Meningococcal Vaccine Aged Out 01/08/2016 No esteban juan eligible based on patient's age to complete this topic Hepatitis A Vaccines Aged Out 04/23/2019 No long er eligible based on patient's [...] patient's age to complete this topic Insurance [facility] [place] AD[place] Care Teams Software Asset Management Analyst Relationship Specialty Start Date End Date Lisset Silva DO [address] [place] [id number] PCP - General Family Medicine 04/10/25
--- OUTSIDE RECORDS SUMMARY | 2025-09-21 22:51 | XMS_ITS | Clinical Summary ---
Author Organization [facility] Address [address] [place] [address] Phone Care Team Providers Care Manager Paper Name Role Phone Physician, Pcp Unknown Primary [...] Health Maintenance Due Date Last Done Comments Colorectal Cancer Screening: Colonoscopy 1971 DTaP,Tdap,and Td Vaccines (1 - Tdap) 1990 Hepatitis B Vaccines (1 of 3 - 19+ 3-dose series) 1990 Pneumococcal Vaccine: 50+ Ye ars (1 of 2 - PCV) 1990 Zoster Vaccines (1 of 2) 2021 Depression Screening 10/29/2024 Cholesterol Screening (Lipid Panel) 01/24/2025 HIV Screening 01/24/2025 Hepatitis C Screening 01/24/2025 Social Influencers of Health Screening 01/24/2025 COVID-19 Vaccine (1 - 2024-2 6 season) 2025 Influenza Vaccine (#1) 2025 RSV Immunization Adult Patie nts (1 - 1-dose 75+ series) 2046 HIB Vaccines Aged Out No longer eligi [...] Insurance MEDICAID - [place] Care Teams Manager Paper Relationship Specialty Start Date End Date Physician, Pcp Unknown PCP - General 01/24/25
--- NOTE | 2025-09-21 23:01 | ECG_ITS ---
Test Reason : abdominal pain Blood Pressure : */* mmHG Vent. Rate : 91 BPM Atrial Rate : 91 BPM P-R Int : 168 ms QRS Dur : 74 ms QT Int : 334 ms P-R-T Axes : 68 4 53 degrees QTcB Int : 410 ms Normal sinus rhythm Diffuse ST elevations-consider pericarditis. Abnormal ECG When compared with ECG of 18-Mar-2025 10:02, ST elevation now present in Anterolateral leads Referred By: Barbie Haas Electronically Signed By: Fran Mock
[2025-09-21 23:17] LABS: MANUAL DIFF FLAG NO
[2025-09-21 23:18] LABS: Hematocrit 41.3 % (42.0-52.0); Hemoglobin 14.1 g/dl (14.0-18.0); Imm Gran Abs Auto 0.02 X10*3/uL (0.00-0.03); Imm Gran Pct Auto 0.2 % (0.0-0.4); Lymphocytes Absolute Auto 0.9 X10*3/uL (1.2-4.9); Mean Corpuscular HGB Conc 34.1 g/dl (31.0-36.0); Mean Corpuscular Hemoglobin 33.4 pg (27.0-33.0); Mean Corpuscular Volume 97.9 fL (80.0-98.0); NRBC Abs Auto 0.000 X10*3/uL (0.0-0.012); NRBC Pct Auto 0.0 /100WBC (0.0-0.2); Platelet Count 212 X10*3/uL (160-400); Red Blood Count 4.22 X10*6/uL (4.60-5.80); White Blood Count 8.8 X10*3/uL (4.8-10.8)
--- NOTE | 2025-09-21 23:22 | ED_ITS ---
HPI - Abdominal Pain General Chief Complaint: Abdominal Pain Stated Complaint: Stomach Pain Time Seen by Provider: 09/21/25 22:40 History of Present Illness ED Provider: Barbie Haas HPI narrative: 55-year-old male PMH substance use presents to the ED for evaluation reporting epigastric abdominal pain that began around 7:00 p.m. after having dinner. He reports having fries, and gravy, and meat for dinner. The pain began shortly after, he had to stop eating as he endorses a sensation of fullness. Some nausea, no vomiting, diarrhea, constipation. No fever, chills. No urinary complaints. Denies any substernal chest pain or pressure, palpitations, or shortness of breath. No recent illnesses. Does report similar episodes of this in the past. Related Data Previous Rx's ?Medication ?Instructions ?Recorded pantoprazole 40 mg tablet,delayed 40 mg PO DAILY 30 da ys #30 tabs 09/22/25 release (Protonix) Allergies Allergy/AdvReac Type Severity Reaction Status Date / Time No Known Allergies Allergy Verified 09/21/25 22:38 Review of Systems Review of Systems ROS is otherwise negative unless mentioned in HPI. [facility] Social History Social History (System 03/25/25 @ 13:33 by Nessa Park) Substance Use Type: Unknown Advance Directives: No Advance Directives Information Provided: No Physical Exam ED Exam Exam: Nursing notes and vital signs reviewed. Constitutional: Well-appearing, NAD. Alert. Oriented X3. Eyes: EOMI. ENT: Pharynx normal. Neck: Normal inspection. Neck supple. CVS: Normal heart rate and rhythm. Pulses normal. Respiratory: No respiratory distress. Breath sounds normal. Abdomen: Soft and nontender. Nondistended. +BSx4. Skin: Skin warm and dry. Normal skin color. Extremities: No lower extremity edema. Neuro: Oriented X 3. No motor deficit. Vital Signs: Vital Signs - 24 hr 09/21/25 22:30 09/22/25 00:22 Temperature 97.6 F 97.9 F Pulse Rate 101 H 67 Respiratory Rate 20 18 Blood Pressure 114/70 113/75 Pulse Oximetry 97 99 Oxygen Delivery Method Room Air Room Air BMI result Body Mass Index 24.4 Medical Decision Making Medical Decision Making [facility] Narrative: Upon my assessment of this patient, he overall appears well. He answers questions appropriately. The agricultural crop farm manager services were utilized given his primary language is Kenyan. His abdominal exam is benign. It appears that he developed the pain after eating, and likely this is acute reflux disease as he describes it as burning. We will administer a PPI, antiemetic, IV fluid bolus and obtain basic labs, EKG and reassess. 0054-- patient reported significant improvement after antiemetic, IV fluids. His lab work was overall reassuring in comparison to previous. Urinalysis with no signs of infection. Plan to discharge home with outpatient follow up with Gastroenterology, a PCP. I will also send a prescription for Protonix given the likely GERD related symptoms. Patient agreeable to plan of care. Differential Diagnosis Differential Diagnoses: The differential diagnosis associated with the presentation includes Gastroenteritis, gastritis, GERD, ACS, mi Admission/Observation Consideration of admission/observation: Escalation of care including admission/observation considered (Not indicated) Lab Data MDM Lab Attestation statement: I reviewed the patient's lab results. 09/21/25 23:11 09/21/25 23:11 Labs: Lab Results 09/21/25 Range/Units 23:11 WBC 8.8 (4.8-10.8) X10*3/uL RBC 4.22 L D (4.60-5.80) X10*6/uL Hgb 14.1 D (14.0-18.0) g/dl Hct 41.3 L D (42.0-52.0) % MCV 97.9 (80.0-98.0) fL MCH 33.4 H (27.0-33.0) pg MCHC 34.1 (31.0-36.0) g/dl RDW 11.2 (11.0-16.0) % Plt Count 212 (160-400) X10*3/uL MPV 9.9 (9.4-12.4) fL Immature Gran % (Auto) 0.2 (0.0-0.4) % Neut % (Auto) 82.4 H (45-73) % Lymph % (Auto) 10.6 L (20-40) % [place]igo % (Auto) 6.5 (2-11) % Eos % (Auto) 0.1 (0-4) % Baso % (Auto) 0.2 (0-2) % Lymph # (Auto) 0.9 L (1.2-4.9) X10*3/uL [place] # (Auto) 0.6 (0.1-1.2) X10*3/uL Eos # (Auto) 0.0 (0.0-0.4) X10*3/uL Baso # (Auto) 0.0 (0.0-0.2) X10*3/uL Abs Immat Gran (auto) 0.02 (0.00-0.03) X10*3/uL Absolute Neuts (auto) 7.3 (2.0-8.3) x10*3/uL Absolute Nucleated RBC 0.000 (0.0-0.012) X10*3/uL Nucleated RBC % (auto) 0.0 (0.0-0.2) /100WBC Sodium 140 (135-145) mmol/L Potassium 4.1 (3.3-5.1) mmol/L Chloride 107 (96-108) mmol/L Carbon Dioxide 26 (22-29) mmol/L Anion Gap 11 L (12-20) BUN 13 (9-16) mg/dL Creatinine 0.96 (0.5-1.4) mg/dL Estim Creat Clear Calc 87.9 Estimated GFR > 60 Random Glucose 108 (60-115) mg/dL Calcium 9.4 D (8.4-10.2) mg/dL Magnesium 2.0 (1.6-2.6) mg/dL Total Bilirubin 0.4 (0.0-1.0) mg/dL Direct Bilirubin 0.2 (0.0-0.5) mg/dL AST 25 (5-37) U/L ALT 11 (0-40) U/L Alkaline Phosphatase 94 (39-117) U/L Troponin I High Sens 2.9 (<3.5-35.0) ng/L Total Protein 7.9 (6.5-8.0) g/dL Albumin 4.4 (3.5-5.0) g/dL Lipase 9 (8-78) U/L Independent Interpretation I performed an independent interpretation of an: EKG Interpretation: Rate: 91 Rhythm: Normal sinus rhythm [place]: 68/4/53 Normal P waves. Normal SIMONE. Normal QRS complex. ST T wave : No depression, elevation qTC:410 prior studies: similar The study has been interpreted contemporaneously by me. Independent Historian Clinical information obtained from an independent historian. History obtained from or confirmed by: Friend External Record Review External record reviewed: Other (Prior ER visits for similar complaints) Tests considered The following testing was considered but not selected: CT imaging of the abdomen and pelvis--not indicated given reassuring exam Chronic Conditions Patient?s care impacted by: Other (Substance use) Social Determinants Patient?s care significantly limited by Social Determinants of Health including: Alcoholism and drug addiction in family Medications Administered Discontinued Medications Generic Name Dose Route Start Last Admin Trade Name Freq PRN Reason Stop Dose Admin Sodium Chloride 1,000 mls @ 999 mls/hr 09/21/25 22:59 09/21/25 23:29 Ns IV 09/21/25 23:59 999 mls/hr .Q1H1M ONE Administration Ondansetron HCl 4 mg 09/21/25 22:59 09/21/25 23:27 Ondansetron Hcl 4 Mg/2 Ml Vial IVPUSH 09/21/25 23:00 4 mg ONCE ONE Administration Pantoprazole Sodium 40 mg 09/21/25 22:59 09/21/25 23:27 Pantoprazole Sodium 40 Mg/10 Ml Vial IVPUSH 09/21/25 23:00 40 mg ONCE ONE Administration Discharge Plan Discharge Clinical Impression: Abdominal pain, acute, epigastric Patient Disposition: Home, Self-Care Instructions: GERD (Gastroesophageal Reflux Disease) (DC), Epigastric Pain (ED) Additional Instructions: As we discussed, your lab work, an EKG was overall reassuring today. Please follow up with Gastroenterology, as well as a primary care provider outpatient. We have prescribed you a course of Protonix, to help with your reflux-related symptoms. Please take this medication as directed. With any worsening complaints at any time, seek re-evaluation in the ED. Prescriptions: New pantoprazole [Protonix] 40 mg tablet,delayed release (DR/EC) 40 mg PO DAILY 30 Days Qty: 30 0RF Referrals: [facility] [Provider Group, Gastroenterology] [facility] Family Medicine [Provider Group, Family Practice] Print Language: Kenyan
[2025-09-21 23:32] LABS: Alanine Aminotransferase 11 U/L (0-40); Albumin Level 4.4 g/dL (3.5-5.0); Alkaline Phosphatase 94 U/L (39-117); Anion Gap 11 (12-20); Aspartate Amino Transferase 25 U/L (5-37); Blood Urea Nitrogen 13 mg/dL (9-16); Calcium 9.4 mg/dL (8.4-10.2); Carbon Dioxide 26 mmol/L (22-29); Chloride 107 mmol/L (96-108); Creatinine Clr Calc Pharmacy 87.9; Estimated Glomerular Filt Rate > 60; Lipase 9 U/L (8-78); Magnesium 2.0 mg/dL (1.6-2.6); Potassium 4.1 mmol/L (3.3-5.1); Sodium 140 mmol/L (135-145); Total Protein 7.9 g/dL (6.5-8.0)
[2025-09-21 23:38] LABS: Troponin-I High Sensitivity 2.9 ng/L (<3.5-35.0)
[2025-09-22 00:22] VITALS: BP 113/75; PULSE 67; RESP 18; TEMP 36.6; O2SAT 99
[2025-09-22 00:51] LABS: Appearance Urine Clear; Glucose Urine UA Negative (Negative); PH 6.0 (5.0-9.0); Specific Gravity - Urine 1.020 (1.005-1.025)
[2025-09-22 01:04] VITALS: BP 118/67; PULSE 82; RESP 18; O2SAT 97
[2025-09-22 01:12] VITALS: BP 118/67; PULSE 82; RESP 18; TEMP 36.6; O2SAT 97
== END 2025-09-22 01:13 | disposition home or self-care (01) ==
PROVIDERS: Nurse Practitioner; Emergency Provider Emergency Medicine
DX: R10.13 Epigastric pain (principal); K21.9 Gastro-esophageal reflux disease without esophagitis
CPT/HCPCS: 36415; 80053; 81003; 82248; 83690; 83735; 84484; 85025; 93005; 96361; 96374; 96375; 99284; J2405; J2470

== ENCOUNTER → 2025-09-21 23:01 | Outpatient (BNV) | payer MEDICAID, SELFPAY | PROVIDERS: Emergency Provider Emergency Medicine; Visit Provider Internal Medicine Cardiovascular Disease | DX: R94.31 Abnormal electrocardiogram [ECG] [EKG] (principal); R10.9 Unspecified abdominal pain | CPT/HCPCS: 93010 ==

== ENCOUNTER 2025-09-27 16:05 | Emergency (ER) | payer MEDICAID, SELFPAY ==
--- NOTE | 2025-09-27 | ECG_ITS ---
Test Reason : cp Blood Pressure : */* mmHG Vent. Rate : 67 BPM Atrial Rate : 67 BPM P-R Int : 160 ms QRS Dur : 72 ms QT Int : 380 ms P-R-T Axes : 78 -11 37 degrees QTcB Int : 401 ms Sinus rhythm with Premature atrial complexes Otherwise normal ECG When compared with ECG of 21-Sep-2025 23:02, Premature atrial complexes are now Present Referred By: Generic ED Physician Electronically Signed By: MINDI SUBRAMANIAN
[2025-09-27 16:24] VITALS: BP 113/77; BP 119/81; PULSE 71; PULSE 84; RESP 18; TEMP 37; O2SAT 99; BMI 21.2
--- NOTE | 2025-09-27 16:24 | ED_ITS ---
HPI - General Adult General Chief complaint: General Medical Stated complaint: Chest pressure after using cocaine Time Seen by Provider: 09/27/25 16:24 Source: patient and RN notes reviewed Mode of arrival: EMS Limitations: language barrier (bedside wet cotton feeder utilized; Kathy) History of Present Illness HPI narrative: 55-year-old male presents by EMS for evaluation of acid reflux . Patient states that he has had a long history of this and was actually seen in the emergency department last week for the same symptoms. Patient states he has this problem and today he decided to Snore some cocaine. He then contacted EMS. He denies having any chest pain at this time. No fevers chills nausea or vomiting. No SI or HI. Patient states he was seen recently in the emergency department. Patient states his symptoms are the same that he has had previously. He is otherwise feeling well. Related Data Previous Rx's ?Medication ?Instructions ?Recorded pantoprazole 40 mg tablet,delayed 40 mg PO DAILY 30 da ys #30 tabs 09/22/25 release (Protonix) Allergies Allergy/AdvReac Type Severity Reaction Status Date / Time No Known Allergies Allergy Verified 09/27/25 16:26 Review of Systems Review of Systems: Yes all other systems are reviewed and are negative Constitutional: Constitutional: Denies chills and Denies fever(s) Cardiovascular: Cardiovascular: Denies chest pain Gastrointestinal: Gastrointestinal: Denies abdominal pain PMFSH Past Medical History Source: nursing notes reviewed Social History Social History (System 03/25/25 @ 13:33 by Nessa Park) Substance Use Type: Unknown Advance Directives: No Advance Directives Information Provided: No Physical Exam ED Vital Signs: Vital Signs - 24 hr 09/27/25 16:24 09/27/25 17:02 Temperature 98.6 F 98.6 F Pulse Rate 71 71 Respiratory Rate 18 18 Blood Pressure 119/81 119/81 Pulse Oximetry 99 99 Oxygen Delivery Method Room Air Room Air BMI result Body Mass Index 21.2 Const General: alert, awake and Physically active Resp Other: Lung sounds clear throughout. No wheezes rales or rhonchi Cardio Rate: regular rate Rhythm: regular rhythm GI Other: abdomen is soft and nontender. No Blackburn's sign. No peritoneal sign. No CVAT. Course Course Course Narrative: 55-year-old with epigastric pain. Currently he is asymptomatic. He denies having any chest pain despite the initial triage report. He denies any shortness of breath. I have discussed with the patient about checking additional lab work and further workup however the patient is quite adamant about staying tab this taking care of. He is requesting a referral to GI. However upon evaluating his recent labs which are within normal ranges, as well as discharge paperwork, there is referral to GI. Patient states he did not make any cause. He would like to be discharged home and he reports that he will follow up with GI, making a call tomorrow. I provided the referral information with his discharge paperwork once again. He reports he will continue current medications. Patient expresses understanding of all discharge instructions and has no further questions at this time. Discharge Plan Discharge Clinical Impression: Abdominal pain, epigastric, Cocaine abuse Patient Disposition: Home, Self-Care Instructions: Abdominal Pain (ED) Additional Instructions: Clear liquids. [place] diet. Gradually advance. Follow up with GI referral. Call tomorrow to schedule follow up appointment. Avoid cocaine use. Continue pantoprazole as directed. Follow-up with your primary care provider. Call this week to schedule a follow- up appointment. Return to the emergency department if you have any worsening of symptoms, or any concerns. Get well soon! Prescriptions: No Action pantoprazole [Protonix] 40 mg tablet,delayed release (DR/EC) 40 mg PO DAILY 30 Days Qty: 30 0RF Referrals: [facility] [place] Gastro[facility] [Provider Group, Gastroenterology] Interventions: ED Discharge Assessment Last Done: 09/27/25 17:02 Discharge Date/Time: 09/27/25 17:03 Print Language: Angolan
--- NOTE | 2025-09-27 16:27 | PC.NURSE ---
IV from EMS removed on arrival, EKG completed in triage off EMS stretcher. Pt already wanting to leave, interp at bedside in triage, this RN discussed with PIT provider situation, pt currently in PIT chair to be assessed by provider, provider and inside channel account manager aware pt is still wanting to leave but did agree to be seen by the provider at this time.
--- OUTSIDE RECORDS SUMMARY | 2025-09-27 16:51 | XMS_ITS | Clinical Summary ---
Author Organization [employer] Address [address] [place] [address] Care Team Providers Care Jack Spinner Name Role Phone Lisset Silva Primary Care [...] ambulance. Elevated blood pressure reading 03/18/2025 04/10/2025 Immunizations Immunization Administration Dates Next Due Influenza, [...] with others, in a hotel, in a nursing home, living outside on the street, on a [...] patient's age to complete this topic Insurance [facility] C3 DENTAL-[facility] MEDICAID STAND ADULT Care Teams Jack Spinner Relationship Specialty Start Date End Date Lisset Silva DO [address] [place] [address] PCP - General Family Medicine 04/10/25
--- OUTSIDE RECORDS SUMMARY | 2025-09-27 16:51 | XMS_ITS | Clinical Summary ---
Author Organization [facility] Address [address] [place] [address] Phone Care Team Providers Care Rn Research Name Role Phone Physician, Pcp Unknown Primary [...] 01/24/2025 Insurance MEDICAID - [place] Care Teams Rn Research Relationship Specialty Start Date End Date Physician, Pcp Unknown PCP - General 01/24/25
--- OUTSIDE RECORDS SUMMARY | 2025-09-27 16:51 | XMS_ITS | Patient Health Record ---
Author Organization [facility] Address [address] [place] [address] Support Name Relationship Address Phone GENE NORRIS Guarantor Unknown Reason For Referral No Information Plan Of Treatment No Information Insurance Providers Payer Name Payer Address Payer Phone Subscriber Number Group Number Insured Name Patient Relationship to Insured Coverage Start Date Coverage End Date [address] [place] [id number] [phone] [id number] GENE NORRIS Self - patient is the insured
[2025-09-27 17:02] VITALS: BP 119/81; PULSE 71; RESP 18; TEMP 37; O2SAT 99
== END 2025-09-27 17:03 | disposition home or self-care (01) ==
PROVIDERS: Emergency Provider Emergency Medicine Emergency Medical Services
DX: R10.13 Epigastric pain (principal); F14.10 Cocaine abuse, uncomplicated
CPT/HCPCS: 93005; 99283

== ENCOUNTER → 2025-09-27 16:15 | Outpatient (BNV) | payer MEDICAID, SELFPAY | PROVIDERS: Emergency Provider Emergency Medicine Emergency Medical Services; Visit Provider Internal Medicine | DX: I49.1 Atrial premature depolarization (principal) | CPT/HCPCS: 93010 ==

== ENCOUNTER 2025-09-29 09:26 | Emergency (ER) | payer MEDICAID, SELFPAY ==
--- NOTE | ~2025-09-29 | XR_ITS ---
EXAMINATION: XR CHEST CLINICAL INFORMATION: cough COMPARISON: March 10, 2025 TECHNIQUE: PA and lateral views FINDINGS: Hyperinflated lungs. Mild pulmonary reticular pattern. No consolidation, pleural effusion or pneumothorax. Cardiomediastinal silhouette size is normal. Multilevel thoracolumbar spondylosis with S-shaped curvature. Superior endplate compression deformity representing 30% volume loss at likely L1 vertebra. XR/XR chest 2V IMPRESSION: No acute airspace disease. Chronic interstitial lung disease cannot be excluded. Subacute to old superior endplate compression deformity, L1. Electronically signed by: Ady French MD 09/29/2025 10:11 AM ESME
[2025-09-29 09:50] VITALS: BP 129/82; PULSE 97; RESP 20; TEMP 36.8; O2SAT 97; BMI 23.3
--- NOTE | 2025-09-29 09:51 | ED_ITS ---
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 Patient states that he has been feeling generally unwell with a cough, headache, and congestion. Patient denies any other complaints at this time. Related Data Previous Rx's ?Medication ?Instructions ?Recorded pantoprazole 40 mg tablet,delayed 40 mg PO DAILY 30 da ys #30 tabs 09/22/25 release (Protonix) Allergies Allergy/AdvReac Type Severity Reaction Status Date / Time No Known Allergies Allergy Verified 09/29/25 09:53 Review of Systems Constitutional: Constitutional: Reports as per HPI Eyes: Eyes: Reports as per HPI ENT: Reports as per HPI Cardiovascular: Cardiovascular: Reports as per HPI Respiratory: Respiratory: Reports as per HPI Gastrointestinal: Gastrointestinal: Reports as per HPI Genitourinary: Genitourinary: Reports as per HPI Musculoskeletal: Musculoskeletal: Reports as per HPI Integumentary/Breasts: Skin/Breast: Reports as per HPI Neurologic: Reports as per HPI Psychiatric: Psychiatric: Reports as per HPI Endocrine: Endocrine: Reports as per HPI Hematologic/Lymphatic: Hematologic/Lymphatic: Reports as per HPI Allergic/Immunologic: Allergic/Immunologic: Reports as per HPI [facility] Past Medical History Attestation statement: The following information was validated with the patient. Source: old records reviewed and nursing notes reviewed Social History Social History Substance Use Type: Unknown Advance Directives: No Advance Directives Information Provided: No Do you have a plan to hurt others: No Plan Physical Exam ED Vital Signs: Vital Signs - 24 hr 09/29/25 09:50 09/29/25 11:56 Temperature 98.3 F 98.3 F Pulse Rate 97 97 Respiratory Rate 20 20 Blood Pressure 129/82 129/82 Pulse Oximetry 97 97 Oxygen Delivery Method Room Air Room Air BMI result Body Mass Index 23.3 Const General: cooperative, no acute distress, alert and awake Nutritional Appearance: well nourished Orientation/consciousness: patient oriented x3 HENMT Head: Yes normal to inspection and Yes atraumatic Ears: hearing grossly normal bilaterally and external ears normal General nose exam: Normal external nose present, no nasal discharge noted and no epistaxis Face and sinus: Yes normal facial exam, No abrasion and No laceration Mouth: Normal oral and palatal mucosa present, no drooling and no muffled voice Eyes General: appearance normal, both eyes and all related structures Periorbital: periorbital findings normal Eyelids: Yes eyelids normal Conjunctivae: conjunctivae normal Pupils: Equal, round and reactive pupils present EOM: EOMs intact bilaterally Neck Neck: Yes normal visual inspection and Yes full ROM Resp Effort & Inspection: normal respiratory effort and able to speak in complete sentences Neuro General: patient oriented x3, moves all extremities and CN's II-XI intact bilaterally Cranial nerves: Yes Equal, round and reactive pupils present Cognition (Neuro): normal cognition Extrem General: Yes normal to inspection, Yes full ROM and Yes capillary refill normal Psych Appearance: grossly normal Mental Status: mental status grossly normal Affect: normal affect Attitude: cooperative Thought process: Normal thought process present Thought content: Normal thought content present Insight: Good insight present (Psych) Course Course Course Narrative: Rapid medical examination performed in triage by Jessica Smyth PA-C: Patient is a 55 year old assigned male at presenting to the emergency department with a cough and headache. Detailed physical exam and review of systems are deferred to the manufacturing production technician. Imaging and swabs ordered. Patient placed back in the waiting room pending room availability and results. Medical Decision Making Medical Decision Making [facility] Narrative: Patient is a 55 year old assigned male at with no reported medical history presenting to the emergency department today feeling generally unwell with a cough, headache, and congestion. Patient's physical exam was as noted in the physical exam portion of this note. Patient's COVID-19, influenza, and RSV testing was negative. Patient's chest x-ray showed no acute process. Patient's clinical presentation is most consistent with a viral illness. I explained my physical exam findings as well as all test results to the patient. I answered all questions asked by the patient. I stressed the importance of the patient taking his medication as directed (either prescribed or as the over the counter packaging recommends). I stressed the importance of the patient following up with his primary care provider. I stressed the importance of the patient returning to the emergency department immediately if his symptoms were to worsen or if he were to develop any dizziness, shortness of breath, difficulty breathing, chest pain, blurry vision, loss of vision, nausea, vomiting, abdominal pain, fever, chills, back pain, or any other complaints. Patient verbalized agreement and understanding with this treatment plan and discharge. Differential Diagnosis Differential Diagnoses: The differential diagnosis associated with the presentation includes Viral illness COVID-19 Influenza RSV Admission/Observation Consideration of admission/observation: Escalation of care including admission/observation considered Patient would have been admitted to the hospital had his work up had any findings where hospital admission was appropriate and his clinical presentation warranted hospital admission. Lab Data [facility] Lab Attestation statement: I reviewed the patient's lab results. My interpretation of these results are in the [facility] Rationale portion of this note. Labs: Lab Results 09/29/25 Range/Units 10:00 Influenza Type A (PCR) NEGATIVE (Negative) Influenza Type B (PCR) NEGATIVE (Negative) RSV RNA Qual (PCR) NEGATIVE (Negative) SARS-CoV-2 RNA (RT-PCR) NEGATIVE (Negative) Independent Interpretation I performed an independent interpretation of an: Plain X-Ray Interpretation: My interpretation is in agreement with the radiologist's impression of this imaging study as written below. EXAMINATION: XR CHEST CLINICAL INFORMATION: cough COMPARISON: March 10, 2025 TECHNIQUE: PA and lateral views FINDINGS: Hyperinflated lungs. Mild pulmonary reticular pattern. No consolidation, pleural effusion or pneumothorax. Cardiomediastinal silhouette size is normal. Multilevel thoracolumbar spondylosis with S-shaped curvature. Superior endplate compression deformity representing 30% volume loss at likely L1 vertebra. XR/XR chest 2V IMPRESSION: No acute airspace disease. Chronic interstitial lung disease cannot be excluded. Subacute to old superior endplate compression deformity, L1. Electronically signed by: Ady French MD 09/29/2025 10:11 AM EST Dictated By: Ady Parker MD Signed By: Electronically signed by Ady Drake MD 09/29/25 1011 Radiology Impression Discussion of test interpretation with radiology: I have reviewed the radiologist's reading. Discharge Plan Discharge Clinical Impression: Viral illness Patient Disposition: Home, Self-Care Instructions: Viral Syndrome (ED) Additional Instructions: IF you are prescribed home medications and/or you are taking over the counter medications at home - it is very important you continue to do so as prescribed / directed unless told otherwise. SI le recetan medicamentos y/o est? tomando medicamentos de venta mary ellen, es muy importante que contin?e haci?ndolo seg?n lo recetado/indicado a menos que le indiquen lo contrario. Follow up with your primary care provider. Return to the emergency department immediately if your symptoms worsen or if you develop any dizziness, shortness of breath, difficulty breathing, chest pain, blurry vision, loss of vision, nausea, vomiting, abdominal pain, fever, chills, back pain, or any other complaints. Saray?seguimiento?con cline m?dico de atenci?n primaria. Acuda inmediatamente al servicio de urgencias si francisco javier s?ntomas empeoran o si presenta falta de aliento, dificultad para respirar, dolor tor?cico, mareos, aturdimiento, dolor de espalda, dolor abdominal, fiebre, escalofr?os o cualquier otro s?ntoma. If you do not have a primary care provider - call any of the below numbers to establish and follow up with a primary care provider. Si no tiene un proveedor de atenci?n primaria, llame a cualquiera de los n?meros que aparecen a continuaci?n para establecer y hacer seguimiento con un proveedor de atenci?n primaria. [facility] Primary Care ([place]) [phone] [address] [place], [address] [facility] Primary Care ([address] [place]) [phone] [address] [facility], [address] [place], [address] [facility] Primary Care ([address] [place]) [phone] [address] [facility], [address] [place], [address] [facility] Primary Care ([place]) [phone] [place] [address], [address] [place], [address] [facility] Family Medicine [phone] [place] [address], [address] Please see the information below about our Patient Portal. If you are not yet enrolled in the [facility] Patient Portal, you will receive an enrollment email invitation following your visit to any [facility] care setting. You may also self-enroll in the Patient Portal by visiting our website: [email or web address] The following information is required to access the Patient Portal: - Your [facility] Medical Record Number - Your personal home email address (must match what is in your electronic medical record, Registration staff can assist with this) - Name - Date of Capabilities of the Patient Portal: - Message some providers - View upcoming appointments - Access your health summary, medical history, and visit history - View current conditions and allergies - View procedure and lab results - View your medications, including guidelines, side effects, and precautions - Complete pre-appointment questionnaires requested by your provider - Ready summary reports of your office visits and procedures To access the Patient Portal Mobile K[employer]ia, follow these directions: - Search [employer] in the Kecia Store or [employer] - Download the Kecia - Search for [facility] - Enter your login/password Portal del paciente Si usted no esta inscrito en el portal de pacientes de [facility], recibira titus invitacion de inscripcion despues de cline visita al [facility] o al [facility] via correo electronico. Tambien puede inscribirse voluntariamente en el portal de pacientes visitando nuestra pagina web: [email or web address] La siguiente informacion sera requerida para acceder al portal: - Cline fauzia de historia medica de [facility] - Cline direccion de correo electronico personal - Nombre - Fecha de nacimiento Capacidades: Las siguientes capacidades estan disponibles en el portal de pacientes: - Enviar mensajes a algunos doctores - Verificar proximas citas - Acceso a cline historial de junie, registro medico e historial de visitas - Nanette las condiciones actuales y alergias nanette procedimientos y resultados del laboratorio - Nanette francisco javier medicamentos, incluyendo las pautas - Efectos secundarios y precauciones - Completar o llenar formularios / cuestionarios de - Citas solicitadas por cline doctor - Leer los resumenes de reportes medicos de francisco javier visitas y procedimientos Kassidy acceder a la aplicacion movil: - Busque [employer] en la Kecia Store o [employer] Store - Descargue la aplicacion - [facility] - Ingrese cline nombre de usuario / Contrasena Prescriptions: No Action pantoprazole [Protonix] 40 mg tablet,delayed release (DR/EC) 40 mg PO DAILY 30 Days Qty: 30 0RF Interventions: ED Discharge Assessment Last Done: 09/29/25 11:56 Discharge Date/Time: 09/29/25 11:58 Print Language: Romansh
[2025-09-29 11:18] LABS: Resp Syncy Virus RNA Qual PCR NEGATIVE (Negative); SARS COV2 PCR INHOUSE NEGATIVE (Negative)
[2025-09-29 11:56] VITALS: BP 129/82; PULSE 97; RESP 20; TEMP 36.8; O2SAT 97
--- OUTSIDE RECORDS SUMMARY | 2025-09-29 13:58 | XMS_ITS | Clinical Summary ---
Author Organization [facility] Address [address] [place] [address] Phone Care Team Providers Care Vice President [employer] Name Role Phone Physician, Pcp Unknown Primary [...] 01/24/2025 Insurance MEDICAID - [place] Care Teams Vice President [employer] Relationship Specialty Start Date End Date Physician, Pcp Unknown PCP - General 01/24/25
--- OUTSIDE RECORDS SUMMARY | 2025-09-29 13:58 | XMS_ITS | Clinical Summary ---
Author Organization [employer] Address [address] [place] [address] Care Team Providers Care Lingo Cleaner Name Role Phone Lisset Silva Primary Care Provider [phone] Allergies No known active allergies Medications * [...] mouth Once per day. 30 tablet 2 09/28/2025 1:08 PM EST 5 04/10/20 26 Active hydrOXYzine pamoate (Vistaril) 25 MG capsule Take 1 capsule (25 mg) by mouth every 6 (six) hours if needed for anxiety. 30 capsule 2 09/28/2025 1:08 PM EST 5 04/10/20 26 Active Diclofenac Sodium 1 % gel Apply 2 g topically if needed in the morning, at noon, in the evening, and at bedtime (pain). 150 g 3 09/28/2025 1:09 PM EST 5 Active naproxen (Naprosyn) 500 MG tablet Take 1 tablet (500 mg) by mouth if needed in the morning and at bedtime for mild pain. 40 tablet 1 09/28/2025 1:09 PM EST 5 06/08/20 26 Active acetaminophen (Tylenol 8 Hour) 650 MG ER tablet Take 1 tablet (650 mg) by mouth every 8 (eight) hours if needed for mild pain. Do not crush, chew, or split. 50 tablet 2 09/28/2025 1:09 PM EST 5 06/08/20 26 Active docusate sodium (Colace) 100 MG capsule Take 1 capsule (100 mg) by mouth 2 times daily. 180 capsule 3 09/28/2025 1:08 PM EST 5 06/08/20 26 Active polycarbophil (Fibercon) 625 MG tablet Take 1 tablet (625 mg) by mouth 2 times daily. 180 tablet 3 09/28/2025 1:08 PM EST 5 06/08/20 26 Active polyethylene glycol, PEG, 3350 (MiraLax) 17 GM/SCOOP powder Take 17 g by mouth if needed each day (constipation). 527 g 2 09/28/2025 1:08 PM EST 5 06/08/20 26 Active Active Problems Problem [...] and chest pain. [facility]. Pt left with ambulance. Elevated blood pressure reading 03/18/2025 04/10/2025 Encounters Date Type Department Care Team Description 09/28/2025 Patient Outreach [facility] MEDICINE [address] [place] [address] Nixon Camarillo Recovery Supports 09/28/2025 Patient Outreach [facility] MEDICINE [address] [place] [address] Ivette Brothers Recovery Supports from Last 3 Months Immunizations [...] with others, in a hotel, in a skilled nursing, living outside on the street, on a [...] 2021 Zoster Vaccines (1 of 2) 2021 DTaP/Tdap/Td Vaccines (2 - T d or Tdap) 06/07/2025 06/07/2015 COVID-19 Vaccine (1 - 2024-2 6 season) 2025 Influenza Vaccine (#1) 2025 4, 07/13/2013, 11/16/2010 SDOH Screening 04/01/2026 04/01/2025 Alcohol/Substance Use Screening 04/10/2026 04/10/2025 Depression Screening 04/27/2026 04/27/2025, 04/27/2025 Disability Screening 06/08/2026 06/08/2025 Tobacco Screening 06/08/2026 06/08/2025 Dental X-Ray: Full Mouth 01/15/2028 01/13/2025 Meningococcal Vaccine Aged Out 01/08/2016 No esteban [...] patient's age to complete this topic Insurance [facility] ST[facility] ADULT Care Teams Lingo Cleaner Relationship Specialty Start Date End Date Lisset Silva DO [address] [place] [id number] PCP - General Family Medicine 04/10/25
--- OUTSIDE RECORDS SUMMARY | 2025-09-29 13:58 | XMS_ITS | Encounter Summary ---
Author Organization [employer] Address [address] [place] [address] Care Team Providers Care Family Psychologist Name Role Phone Lisset Silva Primary Care Provider Reason for Visit * Reason Comments [facility] Recovery Supports Encounter Details Date Type Department Care Team ([facility] st Contact Info) Description 09/28/2025 Patient Outreach [facility] MEDICINE [address] [place] [address] Nixon Camarillo Recovery Supports Social History Tobacco Use Types Packs/Day Years [...] with others, in a hotel, in a correction, living outside on the street, on a [...] as of this encounter Progress Notes * Nixon Camarilol - 09/28/2025 4:05 PM EST I met with Ag today. Setting: in person at [facility] Recovery Wellness Goals worked on: Physical Health/Mental Health, Social Stability, and Spiritual Wellness Action taken/next steps: Offered person centered recovery support and Attended alcohol and drug free activity Additional comments: Nixon Camarillo documented in this encounter Plan of Treatment Not on file documented as of this encounter Visit Diagnoses Not on filedocumented in this encounter Additional Health Concerns Assessment Noted Time PHQ-9 Depression Total Score: 4 04/27/20 25 12:28 PM EDT documented as of this encounter Care Teams Family Psychologist Relationship Specialty Start Date End Date Lisset Silva DO [address] [place] [id number] PCP - General Family Medicine 04/10/25 documented as of this encounter
--- OUTSIDE RECORDS SUMMARY | 2025-09-29 13:58 | XMS_ITS | Encounter Summary ---
Author Organization [employer] Address [address] [place] [address] Care Team Providers Care Salesperson Meats Name Role Phone PatriciaLisset thompson Primary Care Provider Reason for Visit * Reason Comments [facility] Recovery Supports Encounter Details Date Type Department Care Team ([facility] st Contact Info) Description 09/28/2025 Patient Outreach [facility] MEDICINE [address] [place] [address] Ivette Brothers Recovery Supports Social History Tobacco Use Types [...] with others, in a hotel, in a long term, living outside on the street, on a [...] as of this encounter Progress Notes * Ivette Brothers - 09/28/2025 3:32 PM EST I met with Ag today. Setting: in person at [facility] Recovery Wellness Goals worked on: Social Stability Action taken/next steps: Attended alcohol and drug free activity Additional comments: Ivette Brothers documented in this encounter Plan of Treatment Not on file documented as of this encounter Visit Diagnoses Not on filedocumented in this encounter Additional Health Concerns Assessment Noted Time PHQ-9 Depression Total Score: 4 04/27/20 25 12:28 PM EDT documented as of this encounter Care Teams Salesperson Meats Relationship Specialty Start Date End Date Lisset Silva DO [address] [place] [id number] PCP - General Family Medicine 04/10/25 documented as of this encounter
== END 2025-09-29 11:58 | disposition home or self-care (01) ==
PROVIDERS: Physician Assistant Medical; Emergency Provider Emergency Medicine; PCP Dentist General Practice
DX: B34.9 Viral infection, unspecified (principal); R05.9 Cough, unspecified; R51.9 Headache, unspecified; R50.9 Fever, unspecified; Z03.818 Encounter for observation for suspected exposure to other biological agents ruled out
CPT/HCPCS: 71046; 87637; 99282; 99283

== ENCOUNTER → 2025-09-29 09:52 | Outpatient (BNV) | payer MEDICAID, SELFPAY | PROVIDERS: Visit Provider Radiology Diagnostic Radiology | DX: R05.9 Cough, unspecified (principal) | CPT/HCPCS: 71046 ==

== ENCOUNTER 2025-10-04 22:04 | Emergency (ER) | payer MEDICAID, SELFPAY ==
[2025-10-04 22:12] VITALS: BP 130/80; PULSE 86; RESP 16; TEMP 36.6; O2SAT 98; BMI 24.4
--- OUTSIDE RECORDS SUMMARY | 2025-10-04 23:48 | XMS_ITS | Clinical Summary ---
Author Organization [facility] Address [address] [place] [address] Phone Care Team Providers Care 1St Pressman Name Role Phone Physician, Pcp Unknown Primary [...] not to disclose 2024 4:45 AM EDT Last Filed Vital Signs Vital Sign [...] 01/24/2025 Insurance MEDICAID - [place] Care Teams 1St Pressman Relationship Specialty Start Date End Date Physician, Pcp Unknown PCP - General 01/24/25
== END 2025-10-04 23:53 | disposition left against medical advice (07) ==
PROVIDERS: Emergency Provider Emergency Medicine
DX: R10.9 Unspecified abdominal pain (principal); Z53.21 Procedure and treatment not carried out due to patient leaving prior to being seen by health care provider
CPT/HCPCS: 99281

== ENCOUNTER 2025-10-06 21:49 | Emergency (ER) | payer MEDICAID, SELFPAY ==
--- NOTE | 2025-10-06 | ECG_ITS ---
Test Reason : CHEST PAIN Blood Pressure : */* mmHG Vent. Rate : 69 BPM Atrial Rate : 69 BPM P-R Int : 162 ms QRS Dur : 76 ms QT Int : 384 ms P-R-T Axes : 62 -4 48 degrees QTcB Int : 411 ms Normal sinus rhythm Normal ECG When compared with ECG of 27-Sep-2025 16:15, Premature atrial complexes are no longer Present Referred By: Generic ED Physician Electronically Signed By: BAKARI MULTANI MD
[2025-10-06 21:58] VITALS: BP 178/108; PULSE 103; O2SAT 95
[2025-10-06 22:00] VITALS: BP 127/81; PULSE 69; RESP 16; TEMP 36.8; O2SAT 98
[2025-10-06 22:11] VITALS: BP 123/84; PULSE 66; RESP 14; O2SAT 97; BMI 25.3
[2025-10-06 22:53] LABS: MANUAL DIFF FLAG NO
[2025-10-06 22:55] LABS: Hematocrit 38.5 % (42.0-52.0); Hemoglobin 13.0 g/dl (14.0-18.0); Imm Gran Abs Auto 0.02 X10*3/uL (0.00-0.03); Imm Gran Pct Auto 0.3 % (0.0-0.4); Lymphocytes Absolute Auto 1.2 X10*3/uL (1.2-4.9); Mean Corpuscular HGB Conc 33.8 g/dl (31.0-36.0); Mean Corpuscular Hemoglobin 33.2 pg (27.0-33.0); Mean Corpuscular Volume 98.5 fL (80.0-98.0); NRBC Abs Auto 0.000 X10*3/uL (0.0-0.012); NRBC Pct Auto 0.0 /100WBC (0.0-0.2); Platelet Count 201 X10*3/uL (160-400); Red Blood Count 3.91 X10*6/uL (4.60-5.80); White Blood Count 6.8 X10*3/uL (4.8-10.8)
[2025-10-06 22:56] LABS: Appearance Urine Clear; Glucose Urine UA Negative (Negative); PH 6.0 (5.0-9.0); Specific Gravity - Urine 1.010 (1.005-1.025)
[2025-10-06 23:08] LABS: Cannabinoid Screen Urine Not Detected (Not Detect)
[2025-10-06 23:15] LABS: Alanine Aminotransferase 15 U/L (0-40); Albumin Level 4.1 g/dL (3.5-5.0); Alkaline Phosphatase 82 U/L (39-117); Anion Gap 10 (12-20); Aspartate Amino Transferase 27 U/L (5-37); Blood Urea Nitrogen 11 mg/dL (9-16); Calcium 9.3 mg/dL (8.4-10.2); Carbon Dioxide 29 mmol/L (22-29); Chloride 105 mmol/L (96-108); Creatinine Clr Calc Pharmacy 87.0; Estimated Glomerular Filt Rate > 60; Potassium 4.1 mmol/L (3.3-5.1); Sodium 140 mmol/L (135-145); Total Protein 7.2 g/dL (6.5-8.0)
[2025-10-06 23:26] LABS: Lipase 11 U/L (8-78)
--- OUTSIDE RECORDS SUMMARY | 2025-10-06 23:30 | XMS_ITS | Clinical Summary ---
Author Organization [facility] Address [address] [place] [address] Phone Care Team Providers Care Sales Attendant Name Role Phone Physician, Pcp Unknown Primary [...] 01/24/2025 Insurance MEDICAID - [place] Care Teams Sales Attendant Relationship Specialty Start Date End Date Physician, Pcp Unknown PCP - General 01/24/25
--- OUTSIDE RECORDS SUMMARY | 2025-10-06 23:31 | XMS_ITS | Patient Health Record ---
Author Organization [facility] Address [address] [place] [address] Support Name Relationship Address Phone GENE NORRIS Guarantor Unknown [phone] Reason For Referral No Information Plan Of Treatment No Information Insurance Providers Payer Name Payer Address Payer Phone Subscriber Number Group Number Insured Name Patient Relationship to Insured Coverage Start Date Coverage End Date [address] [place] [phone] [id number] GENE NORRIS Self - patient is the insured
[2025-10-06 23:32] LABS: Troponin-I High Sensitivity < 2.7 ng/L (<3.5-35.0)
--- NOTE | 2025-10-07 00:39 | ED_ITS ---
HPI - Chest Pain General Chief Complaint: Chest Pain Stated Complaint: BENÍTEZ & CP 8-10 pain,not radiating BP 178/108 HR103 Time Seen by Provider: 10/06/25 22:49 History of Present Illness ED Provider: Barbie Haas NP HPI narrative: 55-year-old male medical history significant for cocaine use presents to the ED for evaluation reporting an episode of chest pain that began while he was moving buckets of water and wood. He reports that he used cocaine earlier, he thought he was using marijuana, but it ended up being cocaine. Upon arrival to the ED, the pain has completely resolved. Reports his chest felt tight for about 2 hours. No radiation of pain. No palpitations. No shortness of breath. No abdominal pain, nausea or vomiting, urinary complaints. No fever, chills, recent illnesses. Related Data Previous Rx's ?Medication ?Instructions ?Recorded pantoprazole 40 mg tablet,delayed 40 mg PO DAILY 30 da ys #30 tabs 09/22/25 release (Protonix) Allergies Allergy/AdvReac Type Severity Reaction Status Date / Time No Known Allergies Allergy Verified 10/06/25 22:17 Review of Systems 2 Review of Systems: ROS is otherwise negative unless mentioned in HPI. [facility] Social History Social History Smoked in Last 30 Days: Yes Use of substances other than those prescribed or required for medical reasons: No Substance Use Type: Unknown Advance Directives: No Advance Directives Information Provided: No Physical Exam 2 Exam: Exam: Nursing notes and vital signs reviewed. Constitutional: Well-appearing, NAD. Alert. Oriented X3. Eyes: EOMI. ENT: Pharynx normal. Neck: Normal inspection. Neck supple. CVS: Normal heart rate and rhythm. Pulses normal. Respiratory: No respiratory distress. Abdomen: Soft and nontender. +BSx4. Skin: Skin warm and dry. Normal skin color. Extremities: No lower extremity edema. Neuro: Oriented X 3. No motor deficit. Vital Signs: Vital Signs: Last Vital Signs Temp 98.3 F 10/06/25 22:00 Pulse 66 10/06/25 22:11 Resp 14 10/06/25 22:11 BP 123/84 10/06/25 22:11 Pulse Ox 97 10/06/25 22:11 O2 Del Method Room Air 10/06/25 22:11 BMI result Body Mass Index 25.3 Medications Administered Discontinued Medications Generic Name Dose Route Start Last Admin Trade Name Joana PRN Reason Stop Dose Admin Sodium Chloride 1,000 mls @ 999 mls/hr 10/06/25 23:05 10/06/25 23:46 Ns IV 10/07/25 00:05 999 mls/hr .Q1H1M ONE Administration Medical Decision Making Medical Decision Making [facility] Narrative: 12:49 AM 10/07/2025 (Barbie Haas NP): Upon my initial assessment of the patient, he appears well, he answers questions appropriately. The marketing services rep services were utilized. He tells me that he typically uses marijuana, but feels as though it has been laced with cocaine recently. He previously used cocaine, but tells me he no longer does use cocaine. However, the urine toxicology here shows no evidence of marijuana, but does show evidence of cocaine. Likely, he had discomfort of the chest had region cocaine. It then spontaneously resolved upon arrival to the ED. Since being in the ED, he has had reassuring lab work overall, with 1 flat troponin. The 2nd is currently pending. The urinalysis shows no signs of infection. His EKG is nonischemic and similar in comparison to previous. If 2nd troponin remains negative, plan to discharge home with outpatient follow up with PCP. 1:03 AM 10/07/2025 (Barbie Haas NP): Second troponin flat. Patient remains pain free. Low risk heart score, this does not appear to be cardiac in nature. Given return precautions to the ED. Patient agreeable. Differential Diagnosis Differential Diagnoses: The differential diagnosis associated with the presentation includes Drug-induced chest pain, ACS, mi Admission/Observation Consideration of admission/observation: Escalation of care including admission/observation considered (Not indicated) Lab Data [facility] Lab Attestation statement: I reviewed the patient's lab results. (Overall reassuring.) 10/06/25 22:45 10/06/25 22:44 Labs: Lab Results 10/06/25 10/06/25 10/07/25 Range/Units 22:44 22:45 00:32 WBC 6.8 (4.8-10.8) X10*3/uL RBC 3.91 L (4.60-5.80) X10*6/uL Hgb 13.0 L (14.0-18.0) g/dl Hct 38.5 L (42.0-52.0) % MCV 98.5 H (80.0-98.0) fL MCH 33.2 H (27.0-33.0) pg MCHC 33.8 (31.0-36.0) g/dl RDW 11.3 (11.0-16.0) % Plt Count 201 (160-400) X10*3/uL MPV 10.0 (9.4-12.4) fL Immature Gran % (Auto) 0.3 (0.0-0.4) % Neut % (Auto) 77.3 H (45-73) % Lymph % (Auto) 17.0 L (20-40) % [place] % (Auto) 5.0 (2-11) % Eos % (Auto) 0.1 (0-4) % Baso % (Auto) 0.3 (0-2) % Lymph # (Auto) 1.2 (1.2-4.9) X10*3/uL [place] # (Auto) 0.3 (0.1-1.2) X10*3/uL Eos # (Auto) 0.0 (0.0-0.4) X10*3/uL Baso # (Auto) 0.0 (0.0-0.2) X10*3/uL Abs Immat Gran (auto) 0.02 (0.00-0.03) X10*3/uL Absolute Neuts (auto) 5.3 (2.0-8.3) x10*3/uL Absolute Nucleated RBC 0.000 (0.0-0.012) X10*3/uL Nucleated RBC % (auto) 0.0 (0.0-0.2) /100WBC Sodium 140 (135-145) mmol/L Potassium 4.1 (3.3-5.1) mmol/L Chloride 105 (96-108) mmol/L Carbon Dioxide 29 (22-29) mmol/L Anion Gap 10 L (12-20) BUN 11 (9-16) mg/dL Creatinine 0.97 (0.5-1.4) mg/dL Estim Creat Clear Calc 87.0 Estimated GFR > 60 Random Glucose 95 (60-115) mg/dL Calcium 9.3 (8.4-10.2) mg/dL Total Bilirubin 0.3 (0.0-1.0) mg/dL AST 27 (5-37) U/L ALT 15 (0-40) U/L Alkaline Phosphatase 82 (39-117) U/L Troponin I High Sens < 2.7 < 2.7 (<3.5-35.0) ng/L Total Protein 7.2 (6.5-8.0) g/dL Albumin 4.1 (3.5-5.0) g/dL Lipase 11 (8-78) U/L Urine Color Yellow Urine Appearance Clear Urine pH 6.0 (5.0-9.0) Ur Specific [place] 1.010 (1.005-1.025) Urine Protein Negative (Neg-Trace) mg/dL Urine Glucose (UA) Negative (Negative) mg/dL Urine Ketones 15 (Negative) mg/dL Urine Blood Negative (Negative) Urine Nitrite Negative (Negative) Ur Leukocyte Esterase Negative (Negative) Urine RBC 0-2 (0-2) /HPF Urine WBC 0-5 (0-5) /HPF Ur Squamous Epith Cells 0-2 (0-2) /HPF Urine Bacteria None Seen (None Seen) Hyaline Casts 0-2 (0-2) /LPF Urine Opiates Screen Not Detected (Not Detect) Ur Buprenorphine Scrn Not Detected (Not Detect) ng/mL Ur Oxycodone Screen Not Detected (Not Detect) ng/mL Urine Methadone Screen Not Detected (Not Detect) ng/mL Urine Fentanyl Screen Not Detected (Not Detect) Ur Barbiturates Screen Not Detected (Not Detect) Ur Phencyclidine Scrn Not Detected (Not Detect) Ur Amphetamines Screen Not Detected (Not Detect) U Benzodiazepines Scrn Not Detected (Not Detect) Urine Cocaine Screen POSITIVE H (Not Detect) U Marijuana (THC) Screen Not Detected (Not Detect) Independent Interpretation I performed an independent interpretation of an: EKG Interpretation: Rate: 69 Rhythm: NSR [place]: 62/-4/48 Normal P waves. Normal SIMONE. Normal QRS complex. ST T wave : no dep, elev qTC: 411 prior studies: similar The study has been interpreted contemporaneously by me. Independent Historian Clinical information obtained from an independent historian. History obtained from or confirmed by: EMS External Record Review External record reviewed: Other (prior ER visits) Chronic Conditions Patient?s care impacted by: Other (Substance use) Social Determinants Patient?s care significantly limited by Social Determinants of Health including: Alcoholism and drug addiction in family and Problems related to primary support group Discharge Plan Discharge Clinical Impression: Non-cardiac chest pain Patient Disposition: Home, Self-Care Instructions: Noncardiac Chest Pain (ED) Additional Instructions: As we discussed, your lab work today was overall reassuring including 2-cardiac enzymes. Your chest pain is likely not cardiac in nature. The urine sample showed no signs of infection. However, the urine toxicology is positive for cocaine. Please abstain from cocaine use as this may be causing some of your chest pains. Follow up with the PCP within 1 week. Return to the ED if any worsening complaints. Prescriptions: No Action pantoprazole [Protonix] 40 mg tablet,delayed release (DR/EC) 40 mg PO DAILY 30 Days Qty: 30 0RF Referrals: [facility] [Primary Care Provider, Medical] Print Language: [place]
[2025-10-07 01:00] LABS: Troponin-I High Sensitivity < 2.7 ng/L (<3.5-35.0)
[2025-10-07 01:05] VITALS: BP 101/57; PULSE 59; RESP 14; TEMP 36.6; O2SAT 98
[2025-10-07 01:26] VITALS: BP 101/57; PULSE 59; RESP 14; TEMP 36.6; O2SAT 98
== END 2025-10-07 01:29 | disposition home or self-care (01) ==
PROVIDERS: Nurse Practitioner; Emergency Provider Emergency Medicine
DX: R07.9 Chest pain, unspecified (principal); R51.9 Headache, unspecified
CPT/HCPCS: 36415; 80053; 80307; 81001; 83690; 84484; 85025; 93005; 96360; 99284; 99285

== ENCOUNTER → 2025-10-06 21:57 | Outpatient (BNV) | payer MEDICAID, SELFPAY | PROVIDERS: Emergency Provider Emergency Medicine; Visit Provider Internal Medicine Cardiovascular Disease | DX: R07.9 Chest pain, unspecified (principal) | CPT/HCPCS: 93010 ==

== ENCOUNTER 2025-10-07 18:47 | Emergency (ER) | payer MEDICAID, SELFPAY ==
[2025-10-07 18:53] VITALS: BP 132/89; PULSE 79; O2SAT 98
--- NOTE | 2025-10-07 19:02 | ED.NAVMDI ---
HPI - Nausea/Vomiting/Diarrhea General Chief complaint: Abdominal Pain Stated complaint: abd pain/diarrhea Time Seen by Provider: 10/07/25 21:40 Related Data Previous Rx's ?Medication ?Instructions ?Recorded pantoprazole 40 mg tablet,delayed 40 mg PO DAILY 30 days #30 tabs 09/22/25 release (Protonix) Allergies Allergy/AdvReac Type Severity Reaction Status Date / Time No Known Allergies Allergy Verified 10/07/25 19:03 [facility] Social History Social History Substance Use Type: Unknown Advance Directives: No Advance Directives Information Provided: No Physical Exam Vital Signs: Vital Signs: Last Vital Signs Temp 98.1 F 10/07/25 19:03 Pulse 78 10/07/25 19:03 Resp 16 10/07/25 19:03 BP 121/75 10/07/25 19:03 Pulse Ox 98 10/07/25 19:03 O2 Del Method Room Air 10/07/25 19:03 BMI result Body Mass Index 25.8 Course Course Course Narrative: This is an RME: Additional HPI, ROS, PE not included below will be deferred to primary provider. RME assessment and note performed by: Adore Parker PA-C This is a [id number], with a hx of cocaine use, who presents to the ER with complaints of abdominal pain and diarrhea x 1 hour. Pt was seen this AM for chest pain. Reports that he believes he ate something off and developed diarrhea/abd pain. Reports epigastric pain that radiates into the left side of his chest. Plan: Labs, UA, further ER eval needed Medical Decision Making Medical Decision Making MDM Narrative: I had assigned myself to evaluate this patient however was informed the patient left without being seen. I did not have face to face interaction with this patient. Lab Data 10/07/25 19:27 10/07/25 19:27 Labs: Lab Results 10/07/25 Range/Units 19:27 WBC 6.3 (4.8-10.8) X10*3/uL RBC 3.76 L (4.60-5.80) X10*6/uL Hgb 12.7 L (14.0-18.0) g/dl Hct 36.8 L (42.0-52.0) % MCV 97.9 (80.0-98.0) fL MCH 33.8 H (27.0-33.0) pg MCHC 34.5 (31.0-36.0) g/dl RDW 11.2 (11.0-16.0) % Plt Count 195 (160-400) X10*3/uL MPV 9.7 (9.4-12.4) fL Immature Gran % (Auto) 0.3 (0.0-0.4) % Neut % (Auto) 72.9 (45-73) % Lymph % (Auto) 19.1 L (20-40) % [place] % (Auto) 7.3 (2-11) % Eos % (Auto) 0.2 (0-4) % Baso % (Auto) 0.2 (0-2) % Lymph # (Auto) 1.2 (1.2-4.9) X10*3/uL [place] # (Auto) 0.5 (0.1-1.2) X10*3/uL Eos # (Auto) 0.0 (0.0-0.4) X10*3/uL Baso # (Auto) 0.0 (0.0-0.2) X10*3/uL Abs Immat Gran (auto) 0.02 (0.00-0.03) X10*3/uL Absolute Neuts (auto) 4.6 (2.0-8.3) x10*3/uL Absolute Nucleated RBC 0.000 (0.0-0.012) X10*3/uL Nucleated RBC % (auto) 0.0 (0.0-0.2) /100WBC Sodium 138 (135-145) mmol/L Potassium 3.8 (3.3-5.1) mmol/L Chloride 104 (96-108) mmol/L Carbon Dioxide 25 (22-29) mmol/L Anion Gap 13 (12-20) BUN 10 (9-16) mg/dL Creatinine 0.88 (0.5-1.4) mg/dL Estim Creat Clear Calc 95.9 Estimated GFR > 60 Random Glucose 91 (60-115) mg/dL Calcium 8.9 (8.4-10.2) mg/dL Magnesium 1.9 (1.6-2.6) mg/dL Total Bilirubin 0.4 (0.0-1.0) mg/dL Direct Bilirubin 0.2 (0.0-0.5) mg/dL AST 26 (5-37) U/L ALT 13 (0-40) U/L Alkaline Phosphatase 80 (39-117) U/L Troponin I High Sens 6.0 D (<3.5-35.0) ng/L Total Protein 7.0 (6.5-8.0) g/dL Albumin 4.1 (3.5-5.0) g/dL Lipase 9 (8-78) U/L Influenza Type A (PCR) NEGATIVE (Negative) Influenza Type B (PCR) NEGATIVE (Negative) RSV RNA Qual (PCR) NEGATIVE (Negative) SARS-CoV-2 RNA (RT-PCR) POSITIVE A (Negative) Discharge Plan Discharge Clinical Impression: Patient left without being seen Patient Disposition: Left W/O Completing Treatment Prescriptions: No Action pantoprazole [Protonix] 40 mg tablet,delayed release (DR/EC) 40 mg PO DAILY 30 Days Qty: 30 0RF Discharge Date/Time: 10/07/25 22:30
[2025-10-07 19:03] VITALS: BP 121/75; PULSE 78; RESP 16; TEMP 36.7; O2SAT 98; BMI 25.8
--- NOTE | 2025-10-07 19:07 | ECG_ITS ---
Test Reason : CHEST PAIN Blood Pressure : */* mmHG Vent. Rate : 67 BPM Atrial Rate : 67 BPM P-R Int : 148 ms QRS Dur : 74 ms QT Int : 372 ms P-R-T Axes : 59 -1 49 degrees QTcB Int : 393 ms Normal sinus rhythm Normal ECG When compared with ECG of 06-Oct-2025 21:57, No significant change was found Referred By: Adore Parker Electronically Signed By: BAKARI MULTANI MD
[2025-10-07 19:36] LABS: Hematocrit 36.8 % (42.0-52.0); Hemoglobin 12.7 g/dl (14.0-18.0); Imm Gran Abs Auto 0.02 X10*3/uL (0.00-0.03); Imm Gran Pct Auto 0.3 % (0.0-0.4); Lymphocytes Absolute Auto 1.2 X10*3/uL (1.2-4.9); MANUAL DIFF FLAG NO; Mean Corpuscular HGB Conc 34.5 g/dl (31.0-36.0); Mean Corpuscular Hemoglobin 33.8 pg (27.0-33.0); Mean Corpuscular Volume 97.9 fL (80.0-98.0); NRBC Abs Auto 0.000 X10*3/uL (0.0-0.012); NRBC Pct Auto 0.0 /100WBC (0.0-0.2); Platelet Count 195 X10*3/uL (160-400); Red Blood Count 3.76 X10*6/uL (4.60-5.80); White Blood Count 6.3 X10*3/uL (4.8-10.8)
[2025-10-07 19:53] LABS: Alanine Aminotransferase 13 U/L (0-40); Albumin Level 4.1 g/dL (3.5-5.0); Alkaline Phosphatase 80 U/L (39-117); Anion Gap 13 (12-20); Aspartate Amino Transferase 26 U/L (5-37); Blood Urea Nitrogen 10 mg/dL (9-16); Calcium 8.9 mg/dL (8.4-10.2); Carbon Dioxide 25 mmol/L (22-29); Chloride 104 mmol/L (96-108); Creatinine Clr Calc Pharmacy 95.9; Estimated Glomerular Filt Rate > 60; Lipase 9 U/L (8-78); Magnesium 1.9 mg/dL (1.6-2.6); Potassium 3.8 mmol/L (3.3-5.1); Sodium 138 mmol/L (135-145); Total Protein 7.0 g/dL (6.5-8.0)
[2025-10-07 20:01] LABS: Troponin-I High Sensitivity 6.0 ng/L (<3.5-35.0)
[2025-10-07 20:17] LABS: Resp Syncy Virus RNA Qual PCR NEGATIVE (Negative); SARS COV2 PCR INHOUSE POSITIVE (Negative)
--- NOTE | 2025-10-07 22:16 | PC.NURSE ---
Addendum entered by Christine Perez RN 10/07/25 22:27: Pt LWCT. Original Note: Pt not in room at time of registration.
--- OUTSIDE RECORDS SUMMARY | 2025-10-08 01:06 | XMS_ITS | Clinical Summary ---
Author Organization [employer] Address [address] [place] [address] Care Team Providers Care Crew Person Name Role Phone Lisset Silva Primary Care Provider [phone] Allergies No known active allergies Medications * This document contains information received from the source organization and may not represent a complete record from that organization. fluticasone (Flonase) 50 MCG/ACT nasal sprayIndicatio ns:Acute non-recurrent maxillary sinusitis Administer 1 spray into each nostril Once per day. Shake gently. Before first use, prime pump. After use, clean tip and replace cap. 16 g 2 03/24/20 25 026 Active cetirizine (ZyrTEC) 10 MG tabletIndicati ons:Acute non-recurrent maxillary sinusitis Take 1 tablet (10 mg) by mouth Once per day. 30 tablet 2 03/24/20 25 Active sertraline (Zoloft) 25 MG tablet Take 1 tablet (25 mg) by mouth Once per day. 30 tablet 2 5 1:08 PM EST 04/10/20 25 026 Active hydrOXYzine pamoate (Vistaril) 25 MG capsule Take 1 capsule (25 mg) by mouth every 6 (six) hours if needed for anxiety. 30 capsule 2 5 1:08 PM EST 04/10/20 25 026 Active Diclofenac Sodium 1 % gel Apply 2 g topically if needed in the morning, at noon, in the evening, and at bedtime (pain). 150 g 3 5 1:09 PM EST 04/10/20 25 Active acetaminophen (Tylenol 8 Hour) 650 MG ER tablet Take 1 tablet (650 mg) by mouth every 8 (eight) hours if needed for mild pain. Do not crush, chew, or split. 50 tablet 2 5 1:09 PM EST 06/08/20 25 026 Active docusate sodium (Colace) 100 MG capsule Take 1 capsule (100 mg) by mouth 2 times daily. 180 capsule 3 5 1:08 PM EST 06/08/20 25 026 Active polycarbophil (Fibercon) 625 MG tablet Take 1 tablet (625 mg) by mouth 2 times daily. 180 tablet 3 5 1:08 PM EST 06/08/20 25 026 Active polyethylene glycol, PEG, 3350 (MiraLax) 17 GM/SCOOP powder Take 17 g by mouth if needed each day (constipation) . 527 g 2 5 1:08 PM EST 06/08/20 25 026 Active naproxen (Naprosyn) 500 MG tablet TAKE 1 TABLET BY MOUTH TWICE DAILY IN THE MORNING AND AT BEDTIME NEEDED FOR MILD PAIN 40 tablet 1 10/06/20 25 Active naproxen (Naprosyn) 500 MG tablet Take 1 tablet (500 mg) by mouth if needed in the morning and at bedtime for mild pain. 40 tablet 1 5 1:09 PM EST 06/08/20 25 025 Discontinued Active Problems Problem Noted Date Diagnosed Date Status post ORIF of fracture of ankle 06/08/2025 Tobacco dependence 04/10/2025 Seasonal allergies 04/10/2025 Chronic pain of left ankle 03/24/2025 Major depression, recurrent, chronic 03/19/2025 Generalized anxiety disorder 03/19/2025 Cocaine use disorder ([facility]) 03/19/2025 Resolved Problems Problem Noted Date Diagnosed [...] Encounters Date Type Department Care Team Description 10/06/2025 Orders Only GENERIC EXTERNAL DATA DEPARTMENT Provider, Generic External Data 10/06/2025 Refill [facility] [address] [place] [address] Lisset Silva DO 10/05/2025 Patient Outreach [facility] [address] [place] [address] [employer] [employer] [facility] 10/05/2025 Travel 09/28/2025 Patient Outreach [facility] [address] [place] [address] [facility] [place] [facility] 09/28/2025 Patient Outreach [facility] [address] [place] [address] [employer] [facility] from Last 3 [...] on patient's age to complete this topic Procedures Procedure Name Priority Date/Time Associated Diagnosis Comments HIGH SENSITIVITY TROPONIN I Routine 10/07/2025 7:27 PM EST LIPASE Routine 10/07/2025 7:27 PM EST MAGNESIUM Routine 10/07/2025 7:27 PM EST BASIC METABOLIC PANEL Routine 10/07/2025 7:27 PM EST HEPATIC FUNCTION PANEL Routine 7:27 PM EST CBC WITH AUTO DIFFERENTIAL Routine 10/07/2025 7:27 PM EST SARS COV2/INFLUENZA A/B AND RSV RNA QL NAAT Routine 10/07/2025 7:27 PM EST HIGH SENSITIVITY TROPONIN I Routine 10/07/2025 12:32 AM EST CBC WITH AUTO DIFFERENTIAL Routine 10/06/2025 10:45 PM EST HIGH SENSITIVITY TROPONIN I Routine 10/06/2025 10:44 PM EST LIPASE Routine 10/06/2025 10:44 PM EST COMPREHENSIVE METABOLIC PANEL Routine 10/06/2025 10:44 PM EST DRUG MONITOR, PANEL 1, SCREEN, URINE Routine 10/06/2025 10:44 PM EST URINALYSIS, COMPLETE, WITH REFLEX TO CULTURE Routine 10/06/2025 10:44 PM EST from Last 3 Months Results * High Sensitivity Troponin I (10/07/2025 7:27 PM EST) Only the most recent of3 resultswithin the time period is included. TROPONIN I HIGH SENSITIVITY 6.0 <3.5 - 35.0 ng/L [facility] Comment:The Turner high sens itivity Troponin-I results should beused in conjunction with other diagnostic information suchas ECG, clinical observations and information, and patientsymptoms to aid in the diagnosis of DE. 10/07/2025 7:27 PM EST 10/07/2025 7:34 PM EST Generic External Data Provider LAB BLOOD ORDERAB LES Final Result Performing Organization Address [facility] de Phone Number [facility] [address] [place] [phone] * (ABNORMAL) SARS-CoV-2 RNA, Influenza A/B, and RSV RNA, Ql NAAT (10/07/2025 7:27 PM EST) Influenza A PCR NEGATIVE Negative [facility] Influenza B PCR NEGATIVE Negative [facility] Resp Syncy Virus RNA Qual PCR NEGATIVE Negative [facility] SARS COV2 PCR POSITIVE(A) Negative [facility] Comment:All test results mus t be correlated with clinical findings.Negative results do not preclude SARS-CoV2, influenza Avirus, influenza B virus and/or RSV infectionand should not be used as the sole basis for treatment orother patient management decisions. Negative results must becombined with clinical observations, patient history, andepidemiological information.This test has not been evaluated for monitoring treatment ofinfection.This test has been authorized by the FDA under an EmergencyUse Authorization (EUA) for use by authorized laboratories.Testing performed on the [employer] GeneXpert utilizingreal-time RT-PCR.All SARS CoV2 and positive influenza A/B results arereported to [facility]. 10/07/2025 7:27 PM EST 10/07/2025 7:34 PM EST us Generic External Data Provider LAB MICROBIOLOGY - GENERAL ORDERABLES Final Result Performing Organization Address [facility] Co de Phone Number [facility] [address] [place] [phone] * (ABNORMAL) CBC auto differential (10/07/2025 7:27 PM EST) Only the most recent of2 resultswithin the time period is included. White Blood Count 6.3 4.8 - 10.8 X10*3/uL [facility] Red Blood Count 3.76(L) 4.60 - 5.80 X10*6/uL [facility] Hemoglobin 12.7(L) 14.0 - 18.0 g/dl [facility] Hematocrit 36.8(L) 42.0 - 52.0 % [facility] Mean Corpuscular Volume 97.9 80.0 - 98.0 fL [facility] Mean Corpuscular Hemoglobin 33.8(H) 27.0 - 33.0 pg [facility] Mean Corpuscular HGB Conc 34.5 31.0 - 36.0 g/dl [facility] Red Cell Distribution Width 11.2 11.0 - 16.0 % [facility] Platelet Count 195 160 - 400 X10*3/uL [facility] Mean Platelet Volume 9.7 9.4 - 12.4 fL [facility] Neutrophils Percent Auto 72.9 45 - 73 % [facility] Imm Gran Pct Auto 0.3 0.0 - 0.4 % [facility] Lymphocytes Percent Auto 19.1(L) 20 - 40 % [facility] Monocytes Percent Auto 7.3 2 - 11 % [facility] Eosinophils Percent Auto 0.2 0 - 4 % [facility] Basophils Percent Auto 0.2 0 - 2 % [facility] NRBC Pct Auto 0.0 0.0 - 0.2 /100WBC [facility] Neutrophils Absolute Auto 4.6 2.0 - 8.3 x10*3/uL [facility] Imm Gran Abs Auto 0.02 0.00 - 0.03 X10*3/uL [facility] Lymphocytes Absolute Auto 1.2 1.2 - 4.9 X10*3/uL [facility] Monocytes Absolute Auto 0.5 0.1 - 1.2 X10*3/uL [facility] Eosinophils Absolute Auto 0.0 0.0 - 0.4 X10*3/uL [facility] Basophils Absolute Auto 0.0 0.0 - 0.2 X10*3/uL [facility] NRBC Abs Auto 0.000 0.0 - 0.012 X10*3/uL [facility] 10/07/2025 7:27 PM EST 10/07/2025 7:34 PM EST Generic External Data Provider LAB BLOOD ORDERAB LES Final Result Performing Organization Address City/[facility]/ZIP Co de Phone Number [facility] [address] [place] [phone] * Magnesium (10/07/2025 7:27 PM EST) Magnesium 1.9 1.6 - 2.6 mg/dL [facility] 10/07/2025 7:27 PM EST 10/07/2025 7:34 PM EST Generic External Data Provider LAB BLOOD ORDERAB LES Final Result Performing Organization Address [facility] Co de Phone Number [facility] [address] [place] [phone] * Lipase (10/07/2025 7:27 PM EST) Only the most recent of2 resultswithin the time period is included. Lipase 9 8 - 78 U/L [facility] 10/07/2025 7:27 PM EST 10/07/2025 7:34 PM EST Generic External Data Provider LAB BLOOD ORDERAB LES Final Result Performing Organization Address [facility] Co de Phone Number [facility] [address] [place] [phone] * Hepatic Function Panel (10/07/2025 7:27 PM EST) Bilirubin, Total 0.4 0.0 - 1.0 mg/dL [facility] Bilirubin, Direct 0.2 0.0 - 0.5 mg/dL [facility] Aspartate Amino Transferase 26 5 - 37 U/L [facility] Alanine Aminotransferase 13 0 - 40 U/L [facility] Total Protein 7.0 6.5 - 8.0 g/dL [facility] Albumin Level 4.1 3.5 - 5.0 g/dL [facility] Alkaline Phosphatase 80 39 - 117 U/L [facility] 10/07/2025 7:27 PM EST 10/07/2025 7:34 PM EST us Generic External Data Provider LAB BLOOD ORDERAB LES Final Result [facility] [address] [place] [phone] * Basic Metabolic Panel (10/07/2025 7:27 PM EST) Sodium 138 135 - 145 mmol/L [facility] Potassium 3.8 3.3 - 5.1 mmol/L [facility] Chloride 104 96 - 108 mmol/L [facility] Carbon Dioxide 25 22 - 29 mmol/L [facility] Anion Gap 13 12 - 20 [facility] Urea Nitrogen (BUN) 10 9 - 16 mg/dL [facility] Creatinine, Serum 0.88 0.5 - 1.4 mg/dL [facility] Creatinine Clr Calc Pharmacy 95.9 [facility] Comment:eGFR (calculated fro m the MDRD study equation) and eCrCl(calculated from the Cockcroft-Gault equation) are based ondifferent parameters and may not yield comparable results.If eCrCl result is absurd, please check patient'sheight/weight. Estimated Glomerular Filt Rate >60 [facility] Comment:Chronic Kidney Disea se: Estimated GFR < 60 mL/min/1.74e4Snrzxz Kidney Disease: Estimated GFR < 15 mL/min/1.73m2 Glucose 91 60 - 115 mg/dL [facility] Calcium 8.9 8.4 - 10.2 mg/dL [facility] 10/07/2025 7:27 PM EST 10/07/2025 7:34 PM EST Generic External Data Provider LAB BLOOD ORDERAB LES Final Result Performing Organization Address [facility] Co de Phone Number [facility] [address] [place] [phone] * Urinalysis, Complete, with Reflex to Culture (10/06/2025 10:44 PM EST) Color Urine Yellow [facility] Appearance Urine Clear [facility] PH 6.0 5.0 - 9.0 [facility] Glucose Urine UA Negative Negative mg/dL [facility] Urine Blood Negative Negative [facility] Specific [place] - Urine 1.010 1.005 - 1.025 [facility] Urine Protein Negative Neg-Trace mg/dL [facility] Urine Ketones 15 Negative mg/dL [facility] Nitrite Urine Negative Negative [facility] Leukocyte Esterase Urine Negative Negative [facility] RBC Urine 0-2 0 - 2 /HPF [facility] Urine WBC 0-5 0 - 5 /HPF [facility] Urine Squamous Epithelial Cell 0-2 0 - 2 /HPF [facility] Urine Bacteria None Seen None Seen [facility] Hyaline Casts, Urine 0-2 0 - 2 /LPF [facility] 10/06/2025 10:4 4 PM EST 10/06/2025 10:51 PM EST Narrative [facility] - 10/06/2025 11:06 PM EST Urine, Clean Catch Generic External Data Provider LAB URINE ORDERAB LES Final Result Performing Organization Address [facility]/ZIP Co de Phone Number [facility] [address] [place] [phone] * (ABNORMAL) Drug Monitoring, Panel 1, Screen, Urine (10/06/2025 10:44 PM EST) Opiate Screen Urine Not Detected Not Detect [facility] Comment:Opiate cut-off is 30 0 ng/mL.Positive results are unconfirmed and should not be used fornon-medical purposes. Barbiturates, Urine Not Detected Not Detect [facility] Comment:Barbiturate cut-off is 200 ng/mL.Positive results are unconfirmed and should not be used fornon-medical purposes. Phencyclidine Screen Urine Not Detected Not Detect [facility] Comment:Phencyclidine cut-of f is 25 ng/mL.Positive results are unconfirmed and should not be used fornon-medical purposes. Amphetamine Screen Urine Not Detected Not Detect [facility] Comment:Amphetamine cut-off is 1000 ng/mL.Positive results are unconfirmed and should not be used fornon-medical purposes. Benzodiazepines Screen Urine Not Detected Not Detect [facility] Comment:Benzodiazepine cut-o ff is 200 ng/mL.Positive results are unconfirmed and should not be used fornon-medical purposes. Cocaine Screen Urine POSITIVE(A) Not Detect [facility] Comment:Cocaine cut-off is 3 00 ng/mL.Positive results are unconfirmed and should not be used fornon-medical purposes. Cannabinoid Screen Urine Not Detected Not Detect [facility] Comment:Cannabinoid cut-off is 50 ng/mL.Positive results are unconfirmed and should not be used fornon-medical purposes. Methadone Screen, Urine Not Detected Not Detect ng/mL [facility] Comment:Methadone cut-off is 300 ng/mL.Positive results are unconfirmed and should not be used fornon-medical purposes. FENTANYL URINE Not Detected Not Detect [facility] Comment:Fentanyl cut-off is 1 ng/mL.Positive results are unconfirmed and should not be used fornon-medical purposes. Oxycodone Urine Screen Not Detected Not Detect ng/mL [facility] Comment:Oxycodone cut-off is 100 ng/mL.Positive results are unconfirmed and should not be used fornon-medical purposes. Buprenorphine Screen Not Detected Not Detect ng/mL [facility] Comment:Buprenorphine cut-of f is 5 ng/mL.Positive results are unconfirmed and should not be used fornon-medical purposes. 10/06/2025 10:4 4 PM EST 10/06/2025 10:51 PM EST us Generic External Data Provider LAB URINE ORDERAB LES Final Result [facility] [address] [place] [phone] * (ABNORMAL) Comprehensive Metabolic Panel (10/06/2025 10:44 PM EST) Sodium 140 135 - 145 mmol/L [facility] Potassium 4.1 3.3 - 5.1 mmol/L [facility] Chloride 105 96 - 108 mmol/L [facility] Carbon Dioxide 29 22 - 29 mmol/L [facility] Anion Gap 10(L) 12 - 20 [facility] Urea Nitrogen (BUN) 11 9 - 16 mg/dL [facility] Creatinine, Serum 0.97 0.5 - 1.4 mg/dL [facility] Creatinine Clr Calc Pharmacy 87.0 [facility] Comment:eGFR (calculated fro m the MDRD study equation) and eCrCl(calculated from the Cockcroft-Gault equation) are based ondifferent parameters and may not yield comparable results.If eCrCl result is absurd, please check patient'sheight/weight. Estimated Glomerular Filt Rate >60 [facility] Comment:Chronic Kidney Disea se: Estimated GFR < 60 mL/min/1.30u1Lcleox Kidney Disease: Estimated GFR < 15 mL/min/1.73m2 Glucose 95 60 - 115 mg/dL [facility] Calcium 9.3 8.4 - 10.2 mg/dL [facility] Bilirubin, Total 0.3 0.0 - 1.0 mg/dL [facility] Aspartate Amino Transferase 27 5 - 37 U/L [facility] Alanine Aminotransferase 15 0 - 40 U/L [facility] Total Protein 7.2 6.5 - 8.0 g/dL [facility] Albumin Level 4.1 3.5 - 5.0 g/dL [facility] Alkaline Phosphatase 82 39 - 117 U/L [facility] 10/06/2025 10:4 4 PM EST 10/06/2025 10:51 PM EST us Generic External Data Provider LAB BLOOD ORDERAB LES Final Result Performing Organization Address City/State/[facility] Co de Phone Number [facility] [address] [place] [phone] from Last 3 Months Insurance [facility] C3 DENTAL-[facility] MEDICAID STAND ADULT Care Teams Crew Person Relationship Specialty Start Date End Date Lisset Silva DO [address] [place] [phone] PCP - General Family Medicine 04/10/25
--- OUTSIDE RECORDS SUMMARY | 2025-10-08 01:06 | XMS_ITS | Patient Health Record ---
Author Organization [facility] Address [address] [place] [address] Support Name Relationship Address Phone GENE [place] Guarantor Unknown Reason For Referral No Information Plan Of Treatment No Information Insurance Providers Payer Name Payer Address Payer Phone Subscriber Number Group Number Insured Name Patient Relationship to Insured Coverage Start Date Coverage End Date [address] [place] [id number] GENE NORRIS Self - patient is the insured
--- OUTSIDE RECORDS SUMMARY | 2025-10-08 01:06 | XMS_ITS | Encounter Summary ---
Author Organization [employer] Address [address] [place] [address] Care Team Providers Care Shroud Line Tier Name Role Phone Lisset Silva DO Primary Care Provider [phone] Reason for Visit * Reason Comments Med Refill Encounter Details Date Type Department Care Team ([facility] st Contact Info) Description 10/06/2025 Refill [facility] [address] [place] [address] Lisset Silva DO [address] [place] [address] Social History Tobacco Use Types Packs/Day Years [...] with others, in a hotel, in a snf, living outside on the street, on a [...] Time PHQ-9 Depression Total Score: 4 04/27/20 12:28 PM EDT documented as of this encounter Care Teams Shroud Line Tier Relationship Specialty Start Date End Date Lisset Silva DO [address] [place] [phone] PCP - General Family Medicine 04/10/25 documented as of this encounter
--- OUTSIDE RECORDS SUMMARY | 2025-10-08 01:06 | XMS_ITS | Encounter Summary ---
Author Organization [employer] Address [address] [place] [address] Care Team Providers Care Public Health Service Officer Name Role Phone Lisset Silva Primary Care Provider [phone] Encounter Details Date Type Department Care Team (Latest Contact Info) Description 10/05/2025 Travel Social History Tobacco Use Types Packs/Day [...] with others, in a hotel, in a mcc, living outside on the street, on a [...] documented as of this encounter Care Teams Public Health Service Officer Relationship Specialty Start Date End Date Lisset Silva DO [address] [place] [address] PCP - General Family Medicine 04/10/25 documented as of this encounter
--- OUTSIDE RECORDS SUMMARY | 2025-10-08 01:06 | XMS_ITS | Clinical Summary ---
Author Organization [facility] Address [address] [place] [address] Phone Care Team Providers Care Product Craftsman Name Role Phone Physician, Pcp Unknown Primary [...] 01/24/2025 Insurance MEDICAID - [place] Care Teams Product Craftsman Relationship Specialty Start Date End Date Physician, Pcp Unknown PCP - General 01/24/25
--- OUTSIDE RECORDS SUMMARY | 2025-10-08 01:06 | XMS_ITS | Encounter Summary ---
Author Organization [employer] Address [address] [place] [address] Care Team Providers Care Registered Associate Name Role Phone PatriciaLisset thompson Primary Care Provider [phone] Reason for Visit * Reason Comments [facility] Encounter Details Date Type Department Care Team ([facility] st Contact Info) Description 10/05/2025 Patient Outreach [facility] [address] [place] [address] [employer] [facility] Social History Tobacco [...] encounter Progress Notes * Ivette Brothers - 10/05/2025 3:46 PM EST I met with Ag today. Setting: in person at [facility] Recovery Wellness Goals worked on: Social Stability [...] documented as of this encounter Care Teams Registered Associate Relationship Specialty Start Date End Date Lisset Silva DO [address] [place] [phone] PCP - General Family Medicine 04/10/25 documented as of this encounter
--- OUTSIDE RECORDS SUMMARY | 2025-10-08 01:07 | XMS_ITS | Encounter Summary ---
Author Organization [employer] Address [address] [place] [address] Care Team Providers Care Associate Professor Of Economics Name Role Phone PatriciaLisset thompson Primary Care Provider [phone] Encounter Details Date Type Department Care Team (Late st Contact Info) Description 10/06/2025 Orders Only GENERIC EXTERNAL DATA DEPARTMENT Provider, Generic External Data Social History Tobacco Use Types Packs/Day Years [...] with others, in a hotel, in a penitentiary, living outside on the street, on a [...] t he electric, gas, oil or water [employer] threatened to shut off services in your [...] on file documented as of this encounter Procedures Procedure Name Priority Date/Time Associated Diagnosis Comments HIGH SENSITIVITY TROPONIN I Routine 10/07/2025 7:27 PM EST SARS COV2/INFLUENZA A/B AND RSV RNA QL NAAT Routine 10/07/2025 7:27 PM EST CBC WITH AUTO DIFFERENTIAL Routine 10/07/2025 7:27 PM EST MAGNESIUM Routine 10/07/2025 7:27 PM EST LIPASE Routine 10/07/2025 7:27 PM EST HEPATIC FUNCTION PANEL Routine 7:27 PM EST BASIC METABOLIC PANEL Routine 10/07/2025 7:27 PM EST HIGH SENSITIVITY TROPONIN I Routine 10/07/2025 12:32 AM EST CBC WITH AUTO DIFFERENTIAL Routine 10/06/2025 10:45 PM EST HIGH SENSITIVITY TROPONIN I Routine 10/06/2025 10:44 PM EST URINALYSIS, COMPLETE, WITH REFLEX TO CULTURE Routine 10/06/2025 10:44 PM EST DRUG MONITOR, PANEL 1, SCREEN, URINE Routine 10/06/2025 10:44 PM EST LIPASE Routine 10/06/2025 10:44 PM EST COMPREHENSIVE METABOLIC PANEL Routine 10/06/2025 10:44 PM EST documented in this encounter Results * (ABNORMAL) SARS-CoV-2 RNA, Influenza A/B, and RSV RNA, Ql NAAT (10/07/2025 7:27 PM EST) Influenza A PCR NEGATIVE Negative [facility] Influenza B PCR NEGATIVE Negative [facility] Resp Syncy Virus RNA Qual PCR NEGATIVE Negative [facility] SARS COV2 PCR POSITIVE(A) Negative [facility] Comment:All test results mus t be [...] use by authorized laboratories.Testing performed on the agreement24 [email or web address] GeneXpert utilizingreal-time RT-PCR.All SARS CoV2 and positive influenza A/B results arereported to [facility]. 10/07/2025 7:27 PM EST 10/07/2025 7:34 PM EST us Generic External Data Provider LAB MICROBIOLOGY - GENERAL ORDERABLES Final Result [facility] [address] [place] [phone] * High Sensitivity Troponin I (10/07/2025 7:27 PM EST) Pathologist [facility] TROPONIN I HIGH SENSITIVITY 6.0 <3.5 - 35.0 ng/L [facility] Comment:The Turner high sens itivity Troponin-I results should beused in conjunction with other diagnostic information suchas ECG, clinical observations and information, and patientsymptoms to aid in the diagnosis of NC. 10/07/2025 7:27 PM EST 10/07/2025 7:34 PM EST us Generic External Data Provider LAB BLOOD ORDERAB LES Final Result Performing Organization Address [facility]/ZIP Co de Phone Number [facility] [address] [place] [phone] * Lipase (10/07/2025 7:27 PM EST) Lipase 9 8 - 78 U/L [facility] 10/07/2025 7:27 PM EST 10/07/2025 7:34 PM EST us Generic External Data Provider LAB BLOOD ORDERAB LES Final Result Performing Organization Address [facility] Co de Phone Number [facility] [address] [place] [phone] * Magnesium (10/07/2025 7:27 PM EST) Pathologist [facility] Magnesium 1.9 1.6 - 2.6 mg/dL [facility] 10/07/2025 7:27 PM EST 10/07/2025 7:34 PM EST us Generic External Data Provider LAB BLOOD ORDERAB LES Final Result Performing Organization Address [facility] Co de Phone Number [facility] [address] [place] [phone] * Basic Metabolic Panel (10/07/2025 7:27 PM EST) Sodium 138 135 - 145 mmol/L [facility] Potassium 3.8 3.3 - 5.1 mmol/L [facility] Chloride 104 96 - 108 mmol/L [facility] Carbon Dioxide 25 22 - 29 mmol/L [facility] Anion Gap 13 12 - 20 [facility] Urea Nitrogen (BUN) 10 9 - 16 mg/dL [facility] Creatinine, Serum 0.88 0.5 - 1.4 mg/dL [facility] Creatinine Clr Calc Pharmacy 95.9 [facility] Comment:eGFR (calculated fro m the MDRD study equation) and eCrCl(calculated from the Cockcroft-Gault equation) are based ondifferent parameters and may not yield comparable results.If eCrCl result is absurd, please check patient'sheight/weight. Estimated Glomerular Filt Rate >60 [facility] Comment:Chronic Kidney Disea se: Estimated GFR < 60 mL/min/[id number] Kidney Disease: Estimated GFR < 15 mL/min/1.73m2 Glucose 91 60 - 115 mg/dL [facility] Calcium 8.9 8.4 - 10.2 mg/dL [facility] 10/07/2025 7:27 PM EST 10/07/2025 7:34 PM EST us Generic External Data Provider LAB BLOOD ORDERAB LES Final Result [facility] [address] [place] [address] [phone] * Hepatic Function Panel (10/07/2025 7:27 PM EST) Bilirubin, Total 0.4 0.0 - 1.0 mg/dL [facility] Bilirubin, Direct 0.2 0.0 - 0.5 mg/dL [facility] Aspartate Amino Transferase 26 5 - 37 U/L [facility] Alanine Aminotransferase 13 0 - 40 U/L [facility] Total Protein 7.0 6.5 - 8.0 g/dL [facility] Albumin Level 4.1 3.5 - 5.0 g/dL [facility] Alkaline Phosphatase 80 39 - 117 U/L [facility] 10/07/2025 7:27 PM EST 10/07/2025 7:34 PM EST us Generic External Data Provider LAB BLOOD ORDERAB LES Final Result [facility] [address], [place] [phone] * (ABNORMAL) CBC auto differential (10/07/2025 7:27 PM EST) White Blood Count 6.3 4.8 - 10.8 X10*3/uL [facility] Red Blood Count 3.76(L) 4.60 - 5.80 X10*6/uL [facility] Hemoglobin 12.7(L) 14.0 - 18.0 g/dl [facility] Hematocrit 36.8(L) 42.0 - 52.0 % [facility] Mean Corpuscular Volume 97.9 80.0 - 98.0 fL [facility] Mean Corpuscular Hemoglobin 33.8(H) 27.0 - 33.0 pg [facility] Mean Corpuscular HGB Conc 34.5 31.0 - 36.0 g/dl [facility] Red Cell Distribution Width 11.2 11.0 - 16.0 % [facility] Platelet Count 195 160 - 400 X10*3/uL [facility] Mean Platelet Volume 9.7 9.4 - 12.4 fL [facility] Neutrophils Percent Auto 72.9 45 - 73 % [facility] Imm Gran Pct Auto 0.3 0.0 - 0.4 % [facility] Lymphocytes Percent Auto 19.1(L) 20 - 40 % [facility] Monocytes Percent Auto 7.3 2 - 11 % [facility] Eosinophils Percent Auto 0.2 0 - 4 % [facility] Basophils Percent Auto 0.2 0 - 2 % [facility] NRBC Pct Auto 0.0 0.0 - 0.2 /100WBC [facility] Neutrophils Absolute Auto 4.6 2.0 - 8.3 x10*3/uL [facility] Imm Gran Abs Auto 0.02 0.00 - 0.03 X10*3/uL [facility] Lymphocytes Absolute Auto 1.2 1.2 - 4.9 X10*3/uL [facility] Monocytes Absolute Auto 0.5 0.1 - 1.2 X10*3/uL [facility] Eosinophils Absolute Auto 0.0 0.0 - 0.4 X10*3/uL [facility] Basophils Absolute Auto 0.0 0.0 - 0.2 X10*3/uL [facility] NRBC Abs Auto 0.000 0.0 - 0.012 X10*3/uL [facility] 10/07/2025 7:27 PM EST 10/07/2025 7:34 PM EST Generic External Data Provider LAB BLOOD ORDERAB LES Final Result Performing Organization Address [facility] de Phone Number [facility] [address] [place] [address] [phone] * High Sensitivity Troponin I (10/07/2025 12:32 AM EST) [facility] TROPONIN I HIGH SENSITIVITY <2.7 <3.5 - 35.0 ng/L [facility] Comment:The Turner high sens itivity Troponin-I results should beused in conjunction with other diagnostic information suchas ECG, clinical observations and information, and patientsymptoms to aid in the diagnosis of NC. 10/07/2025 12:3 2 AM EST 10/07/2025 12:37 AM EST [employer] External Data Provider LAB BLOOD ORDERAB LES Final Result Performing Organization Address [facility] Co de Phone Number [facility] [address] [place] [address] [phone] * (ABNORMAL) CBC auto differential (10/06/2025 10:45 PM EST) [facility] White Blood Count 6.8 4.8 - 10.8 X10*3/uL [facility] Red Blood Count 3.91(L) 4.60 - 5.80 X10*6/uL [facility] Hemoglobin 13.0(L) 14.0 - 18.0 g/dl [facility] Hematocrit 38.5(L) 42.0 - 52.0 % [facility] Mean Corpuscular Volume 98.5(H) 80.0 - 98.0 fL [facility] Mean Corpuscular Hemoglobin 33.2(H) 27.0 - 33.0 pg [facility] Mean Corpuscular HGB Conc 33.8 31.0 - 36.0 g/dl [facility] Red Cell Distribution Width 11.3 11.0 - 16.0 % [facility] Platelet Count 201 160 - 400 X10*3/uL [facility] Mean Platelet Volume 10.0 9.4 - 12.4 fL [facility] Neutrophils Percent Auto 77.3(H) 45 - 73 % [facility] Imm Gran Pct Auto 0.3 0.0 - 0.4 % [facility] Lymphocytes Percent Auto 17.0(L) 20 - 40 % [facility] Monocytes Percent Auto 5.0 2 - 11 % [facility] Eosinophils Percent Auto 0.1 0 - 4 % [facility] Basophils Percent Auto 0.3 0 - 2 % [facility] NRBC Pct Auto 0.0 0.0 - 0.2 /100WBC [facility] Neutrophils Absolute Auto 5.3 2.0 - 8.3 x10*3/uL [facility] Imm Gran Abs Auto 0.02 0.00 - 0.03 X10*3/uL [facility] Lymphocytes Absolute Auto 1.2 1.2 - 4.9 X10*3/uL [facility] Monocytes Absolute Auto 0.3 0.1 - 1.2 X10*3/uL [facility] Eosinophils Absolute Auto 0.0 0.0 - 0.4 X10*3/uL [facility] Basophils Absolute Auto 0.0 0.0 - 0.2 X10*3/uL [facility] NRBC Abs Auto 0.000 0.0 - 0.012 X10*3/uL [facility] 10/06/2025 10:4 5 PM EST 10/06/2025 10:51 PM EST Generic External Data Provider LAB BLOOD ORDERAB LES Final Result Performing Organization Address [facility] de Phone Number [facility] [address] [place] [phone] * High Sensitivity Troponin I (10/06/2025 10:44 PM EST) [facility] TROPONIN I HIGH SENSITIVITY <2.7 <3.5 - 35.0 ng/L [facility] Comment:The Turner high sens itivity Troponin-I results should beused in conjunction with other diagnostic information suchas ECG, clinical observations and information, and patientsymptoms to aid in the diagnosis of NC. 10/06/2025 10:4 4 PM EST 10/06/2025 10:51 PM EST Generic External Data Provider LAB BLOOD ORDERAB LES Final Result Performing Organization Address [facility] Phone Number [facility] [address] [place] [address] [phone] * Lipase (10/06/2025 10:44 PM EST) [facility] Lipase 11 8 - 78 U/L [facility] 10/06/2025 10:4 4 PM EST 10/06/2025 10:51 PM EST Generic External Data Provider LAB BLOOD ORDERAB LES Final Result Performing Organization Address [facility] de Phone Number [facility] [address] [place] [address] [phone] * (ABNORMAL) Comprehensive Metabolic Panel (10/06/2025 10:44 PM EST) [facility] Sodium 140 135 - 145 mmol/L [facility] Potassium 4.1 3.3 - 5.1 mmol/L [facility] Chloride 105 96 - 108 mmol/L [facility] Carbon Dioxide 29 22 - 29 mmol/L [facility] Anion Gap 10(L) 12 - 20 [facility] Urea Nitrogen (BUN) 11 9 - 16 mg/dL [facility] Creatinine, Serum 0.97 0.5 - 1.4 mg/dL [facility] Creatinine Clr Calc Pharmacy 87.0 [facility] Comment:eGFR (calculated fro m the MDRD study equation) and eCrCl(calculated from the Cockcroft-Gault equation) are based ondifferent parameters and may not yield comparable results.If eCrCl result is absurd, please check patient'sheight/weight. Estimated Glomerular Filt Rate >60 [facility] Comment:Chronic Kidney Disea se: Estimated GFR < 60 mL/min/[id number] Kidney Disease: Estimated GFR < 15 mL/min/1.73m2 Glucose 95 60 - 115 mg/dL [facility] Calcium 9.3 8.4 - 10.2 mg/dL [facility] Bilirubin, Total 0.3 0.0 - 1.0 mg/dL [facility] Aspartate Amino Transferase 27 5 - 37 U/L [facility] Alanine Aminotransferase 15 0 - 40 U/L [facility] Total Protein 7.2 6.5 - 8.0 g/dL [facility] Albumin Level 4.1 3.5 - 5.0 g/dL [facility] Alkaline Phosphatase 82 39 - 117 U/L [facility] 10/06/2025 10:4 4 PM EST 10/06/2025 10:51 PM EST us Generic External Data Provider LAB BLOOD ORDERAB LES Final Result [facility] [address], [place] [phone] * (ABNORMAL) Drug Monitoring, Panel 1, Screen, Urine (10/06/2025 10:44 PM EST) Opiate Screen Urine Not Detected Not Detect [facility] Comment:Opiate cut-off is 30 0 ng/mL.Positive results are unconfirmed and should not be used fornon-medical purposes. Barbiturates, Urine Not Detected Not Detect [facility] Comment:Barbiturate cut-off is 200 ng/mL.Positive results are unconfirmed and should not be used fornon-medical purposes. Phencyclidine Screen Urine Not Detected Not Detect [facility] Comment:Phencyclidine cut-of f is 25 ng/mL.Positive results are unconfirmed and should not be used fornon-medical purposes. Amphetamine Screen Urine Not Detected Not Detect [facility] Comment:Amphetamine cut-off is 1000 ng/mL.Positive results are unconfirmed and should not be used fornon-medical purposes. Benzodiazepines Screen Urine Not Detected Not Detect [facility] Comment:Benzodiazepine cut-o ff is 200 ng/mL.Positive results are unconfirmed and should not be used fornon-medical purposes. Cocaine Screen Urine POSITIVE(A) Not Detect [facility] Comment:Cocaine cut-off is 3 00 ng/mL.Positive results are unconfirmed and should not be used fornon-medical purposes. Cannabinoid Screen Urine Not Detected Not Detect [facility] Comment:Cannabinoid cut-off is 50 ng/mL.Positive results are unconfirmed and should not be used fornon-medical purposes. Methadone Screen, Urine Not Detected Not Detect ng/mL [facility] Comment:Methadone cut-off is 300 ng/mL.Positive results are unconfirmed and should not be used fornon-medical purposes. FENTANYL URINE Not Detected Not Detect [facility] Comment:Fentanyl cut-off is 1 ng/mL.Positive results are unconfirmed and should not be used fornon-medical purposes. Oxycodone Urine Screen Not Detected Not Detect ng/mL [facility] Comment:Oxycodone cut-off is 100 ng/mL.Positive results are unconfirmed and should not be used fornon-medical purposes. Buprenorphine Screen Not Detected Not Detect ng/mL [facility] Comment:Buprenorphine cut-of f is 5 ng/mL.Positive results are unconfirmed and should not be used fornon-medical purposes. 10/06/2025 10:4 4 PM EST 10/06/2025 10:51 PM EST us Generic External Data Provider LAB URINE ORDERAB LES Final Result Performing Organization Address [facility] Co de Phone Number [facility] [address] [place] [address] [phone] * Urinalysis, Complete, with Reflex to Culture (10/06/2025 10:44 PM EST) Color Urine Yellow [facility] Appearance Urine Clear [facility] PH 6.0 5.0 - 9.0 [facility] Glucose Urine UA Negative Negative mg/dL [facility] Urine Blood Negative Negative [facility] Specific [place] - Urine 1.010 1.005 - 1.025 [facility] Urine Protein Negative Neg-Trace mg/dL [facility] Urine Ketones 15 Negative mg/dL [facility] Nitrite Urine Negative Negative [facility] Leukocyte Esterase Urine Negative Negative [facility] RBC Urine 0-2 0 - 2 /HPF [facility] Urine WBC 0-5 0 - 5 /HPF [facility] Urine Squamous Epithelial Cell 0-2 0 - 2 /HPF [facility] Urine Bacteria None Seen None Seen [facility] Hyaline Casts, Urine 0-2 0 - 2 /LPF [facility] 10/06/2025 10:4 4 PM EST 10/06/2025 10:51 PM EST Narrative [facility] - 10/06/2025 11:06 PM EST Urine, Clean Catch us [employer] External Data Provider LAB URINE ORDERAB LES Final Result Performing Organization Address [facility]/ZIP Co de Phone Number [facility] [address] [place] [phone] documented in this encounter Visit Diagnoses Not on filedocumented in this encounter Additional Health Concerns Assessment Noted Time PHQ-9 Depression Total Score: 4 04/27/20 25 12:28 PM EDT documented as of this encounter Care Teams Associate Professor Of Economics Relationship Specialty Start Date End Date Lisset Silva DO [address] [place] [address] PCP - General Family Medicine 04/10/25 documented as of this encounter
== END 2025-10-07 22:30 | disposition left against medical advice (07) ==
PROVIDERS: Physician Assistant Medical; Emergency Provider Emergency Medicine
DX: U07.1 COVID-19 (principal)
CPT/HCPCS: 80048; 80076; 83690; 83735; 84484; 85025; 87637; 93005; 99283

== ENCOUNTER → 2025-10-07 19:07 | Outpatient (BNV) | payer MEDICAID, SELFPAY | PROVIDERS: Emergency Provider Emergency Medicine; Visit Provider Internal Medicine Cardiovascular Disease | DX: R07.9 Chest pain, unspecified (principal) | CPT/HCPCS: 93010 ==

== ENCOUNTER 2025-10-21 00:03 | Emergency (ER) | payer MEDICAID, SELFPAY ==
--- NOTE | 2025-10-21 | ECG_ITS ---
Test Reason : CHEST PAIN Blood Pressure : */* mmHG Vent. Rate : 85 BPM Atrial Rate : 85 BPM P-R Int : 162 ms QRS Dur : 76 ms QT Int : 368 ms P-R-T Axes : 76 -2 59 degrees QTcB Int : 437 ms Sinus rhythm with marked sinus arrhythmia Otherwise normal ECG No previous ECGs available Referred By: Marina Colunga Electronically Signed By: BAKARI MULTANI MD
--- NOTE | ~2025-10-21 | XR_ITS ---
CLINICAL HISTORY: pain 1 view chest x-ray Comparison: None provided Findings: The lungs are clear. Heart size is normal. No acute fracture. IMPRESSION: 1. No acute findings. This document has been electronically signed by: Waylon Vuong MD on 10/21/2025 01:40:21
[2025-10-21 00:11] VITALS: BP 135/94; BP 150/90; PULSE 120; PULSE 94; RESP 17; TEMP 36.5; O2SAT 97; O2SAT 99; BMI 23.8
[2025-10-21 00:36] LABS: Hematocrit 37.9 % (42.0-52.0); Hemoglobin 12.8 g/dl (14.0-18.0); Imm Gran Abs Auto 0.02 X10*3/uL (0.00-0.03); Imm Gran Pct Auto 0.2 % (0.0-0.4); Lymphocytes Absolute Auto 0.9 X10*3/uL (1.2-4.9); MANUAL DIFF FLAG NO; Mean Corpuscular HGB Conc 33.8 g/dl (31.0-36.0); Mean Corpuscular Hemoglobin 33.6 pg (27.0-33.0); Mean Corpuscular Volume 99.5 fL (80.0-98.0); NRBC Abs Auto 0.000 X10*3/uL (0.0-0.012); NRBC Pct Auto 0.0 /100WBC (0.0-0.2); Platelet Count 247 X10*3/uL (160-400); Red Blood Count 3.81 X10*6/uL (4.60-5.80); White Blood Count 8.3 X10*3/uL (4.8-10.8)
[2025-10-21 00:50] LABS: Alanine Aminotransferase 11 U/L (0-40); Albumin Level 4.2 g/dL (3.5-5.0); Alkaline Phosphatase 92 U/L (39-117); Anion Gap 14 (12-20); Aspartate Amino Transferase 21 U/L (5-37); Blood Urea Nitrogen 12 mg/dL (9-16); Calcium 9.3 mg/dL (8.4-10.2); Carbon Dioxide 25 mmol/L (22-29); Chloride 107 mmol/L (96-108); Creatinine Clr Calc Pharmacy 83.6; Estimated Glomerular Filt Rate > 60; Magnesium 1.9 mg/dL (1.6-2.6); Potassium 3.7 mmol/L (3.3-5.1); Sodium 142 mmol/L (135-145); Total Protein 7.5 g/dL (6.5-8.0)
[2025-10-21 00:52] LABS: Cannabinoid Screen Urine Not Detected (Not Detect)
--- NOTE | 2025-10-21 00:52 | ED.CHESTPAIN ---
HPI - Chest Pain General Chief Complaint: Chest Pain Stated Complaint: CP & PALPITATIONS AFTER USING COCAINE Time Seen by Provider: 10/21/25 00:03 Source: patient Limitations: no limitations History of Present Illness ED Provider: Marina Colunga PA-C HPI narrative: 55-year-old male presents with chest pain. Patient was brought in via ambulance from police station, patient admitted to using cocaine prior to the onset of chest discomfort. Patient states he was in an argument with the his . Patient's symptoms have completely resolved. Related Data Allergies Allergy/AdvReac Type Severity Reaction Status Date / Time No Known Allergies Allergy Verified 10/21/25 00:19 Review of Systems Review of Systems: Yes all other systems are reviewed and are negative Constitutional: Constitutional: Denies fatigue and Denies fever(s) Cardiovascular: Cardiovascular: Reports chest pain and Denies dyspnea Respiratory: Respiratory: Denies cough and Denies dyspnea Gastrointestinal: Gastrointestinal: Denies abdominal pain, Denies nausea and Denies vomiting Endocrine: Endocrine: Denies fatigue PMF Past Medical History Attestation statement: The following information was validated with the patient. Social History Social History Smoked in Last 30 Days: Yes Substance Use Type: Crack/Cocaine Physical Exam Vital Signs: Vital Signs: Last Vital Signs Temp 97.7 F 10/21/25 00:11 Pulse 94 10/21/25 00:11 Resp 17 10/21/25 00:11 BP 135/94 H 10/21/25 00:11 Pulse Ox 97 10/21/25 00:11 O2 Del Method Room Air 10/21/25 00:11 BMI result Body Mass Index 23.8 Const: Other: Alert well-appearing Orientation/consciousness: patient oriented x3 Resp: Effort & Inspection: normal respiratory effort Cardio: Other: Normal peripheral perfusion Skin: Other: Warm dry no rash Neuro: General: patient oriented x3, gait normal, no focal motor deficits and CN's II-XI intact bilaterally Psych: Other: Cooperative Course Reevaluation(s) Reevaluation #1: Patient eloped, without anyone knowing, he had an IV in place, we are trying to see if you still on campus, we are going to have to alert security Time: 01:42 Medical Decision Making Medical Decision Making MDM Narrative: 55-year-old male presents with chest pain. Patient was brought in via ambulance from police station, patient admitted to using cocaine prior to the onset of chest discomfort. Patient states he was in an argument with the his . Patient's symptoms have completely resolved. No chronic issues History: Per patient I have considered the following differential diagnoses: Vasospasm, ACS, anxiety, panic attack Plan: ACS considered, however he likely had some form of vasospasm secondary to the cocaine use. Screening labs including cardiac enzymes EKG and chest x-ray ordered, the patient has been asymptomatic since arrival. We will add on a drug screen. This does not sound to be anxiety or panic, he was arguing with the his spouse, perhaps his emotional stressors were playing a role as well, it is unclear. I have independently reviewed the following tests: Labs: No leukocytosis, not anemic, no electrolyte abnormality troponin less than 2.7, drug screen positive for cocaine EKG:Sinus rhythm with sinus arrhythmia, rate 85, no ischemic changes, QTC 437 Chest x-ray: Findings: The lungs are clear. Heart size is normal. No acute fracture. IMPRESSION: 1. No acute findings. Differential Diagnosis Differential Diagnoses: The differential diagnosis associated with the presentation includes See [facility] Admission/Observation Consideration of admission/observation: Escalation of care including admission/observation considered Not applicable Lab Data [facility] Lab Attestation statement: I reviewed the patient's lab results. 10/21/25 00:29 10/21/25 00:29 Labs: Lab Results 10/21/25 Range/Units 00:29 WBC 8.3 (4.8-10.8) X10*3/uL RBC 3.81 L (4.60-5.80) X10*6/uL Hgb 12.8 L (14.0-18.0) g/dl Hct 37.9 L (42.0-52.0) % MCV 99.5 H (80.0-98.0) fL MCH 33.6 H (27.0-33.0) pg MCHC 33.8 (31.0-36.0) g/dl RDW 11.4 (11.0-16.0) % Plt Count 247 (160-400) X10*3/uL MPV 9.6 (9.4-12.4) fL Immature Gran % (Auto) 0.2 (0.0-0.4) % Neut % (Auto) 82.7 H (45-73) % Lymph % (Auto) 10.9 L (20-40) % Carbon % (Auto) 5.7 (2-11) % Eos % (Auto) 0.4 (0-4) % Baso % (Auto) 0.1 (0-2) % Lymph # (Auto) 0.9 L (1.2-4.9) X10*3/uL Carbon # (Auto) 0.5 (0.1-1.2) X10*3/uL Eos # (Auto) 0.0 (0.0-0.4) X10*3/uL Baso # (Auto) 0.0 (0.0-0.2) X10*3/uL Abs Immat Gran (auto) 0.02 (0.00-0.03) X10*3/uL Absolute Neuts (auto) 6.9 (2.0-8.3) x10*3/uL Absolute Nucleated RBC 0.000 (0.0-0.012) X10*3/uL Nucleated RBC % (auto) 0.0 (0.0-0.2) /100WBC Sodium 142 (135-145) mmol/L Potassium 3.7 (3.3-5.1) mmol/L Chloride 107 (96-108) mmol/L Carbon Dioxide 25 (22-29) mmol/L Anion Gap 14 (12-20) BUN 12 (9-16) mg/dL Creatinine 1.01 (0.5-1.4) mg/dL Estim Creat Clear Calc 83.6 Estimated GFR > 60 Random Glucose 164 H (60-115) mg/dL Calcium 9.3 (8.4-10.2) mg/dL Magnesium 1.9 (1.6-2.6) mg/dL Total Bilirubin 0.3 (0.0-1.0) mg/dL AST 21 (5-37) U/L ALT 11 (0-40) U/L Alkaline Phosphatase 92 (39-117) U/L Troponin I High Sens < 2.7 (<3.5-35.0) ng/L Total Protein 7.5 (6.5-8.0) g/dL Albumin 4.2 (3.5-5.0) g/dL Urine Opiates Screen Not Detected (Not Detect) Ur Buprenorphine Scrn Not Detected (Not Detect) ng/mL Ur Oxycodone Screen Not Detected (Not Detect) ng/mL Urine Methadone Screen Not Detected (Not Detect) ng/mL Urine Fentanyl Screen Not Detected (Not Detect) Ur Barbiturates Screen Not Detected (Not Detect) Ur Phencyclidine Scrn Not Detected (Not Detect) Ur Amphetamines Screen Not Detected (Not Detect) U Benzodiazepines Scrn Not Detected (Not Detect) Urine Cocaine Screen POSITIVE H (Not Detect) U Marijuana (THC) Screen Not Detected (Not Detect) Independent Interpretation I performed an independent interpretation of an: EKG Radiology Impression Discussion of test interpretation with radiology: I have reviewed the radiologist's reading. Discharge Plan Discharge Clinical Impression: Cocaine use Chest pain Qualifiers: Chest pain type: other chest pain Qualified Code(s): R07.89 - Other chest pain Patient Disposition: Elopement Print Language: Yi
[2025-10-21 00:57] LABS: Troponin-I High Sensitivity < 2.7 ng/L (<3.5-35.0)
--- NOTE | 2025-10-21 01:48 | PC.NURSE ---
Pt eloped from ED w/ IV in arm. [employer] called and report made.
[2025-10-21 01:50] VITALS: BP 135/94; PULSE 94; RESP 17; TEMP 36.5; O2SAT 97
--- OUTSIDE RECORDS SUMMARY | 2025-10-21 03:35 | XMS_ITS | Clinical Summary ---
Author Organization [employer] Address [address] [place] [address] Care Team Providers Care Research Administrator Name Role Phone Lisste Silva Primary Care Provider Allergies No known [...] Generalized anxiety disorder 03/19/2025 Cocaine use disorder ([facility]/HCC) 03/19/2025 Resolved Problems Problem Noted Date [...] Encounters Date Type Department Care Team Description 10/08/2025 Telephone [facility] MEDICINE [address] [place] [phone] Lisset Silva DO Recall Appointment 10/08/2025 Travel 10/06/2025 Orders Only GENERIC EXTERNAL DATA DEPARTMENT Provider, Generic External Data 10/06/2025 Refill [facility] [address] [place] [address] Lisset Silva DO 10/05/2025 Patient Outreach [facility] [address] [place] [address] [employer] [facility] 10/05/2025 Travel 09/28/2025 Patient Outreach [facility] [address] [place] [address] [facility] [employer] 09/28/2025 Patient Outreach [facility] [address] [place] [address] [employer] [facility] from Last 3 Months Immunizations [...] with others, in a hotel, in a senior living, living outside on the street, on a [...] 06/08/2025 10:02 AM EDT Plan of Treatment Upcoming Encounters Date Type Department Care Team (Late st Contact Info) Description 11/02/2025 11:15 AM EST Office Visit [facility] MEDICINE [address], [place] [phone] Lisset Silva DO [address] [place] [address] Health Maintenance Due Date Last Done Comments [...] of3 resultswithin the time period is included. Pathologist [facility] TROPONIN I HIGH SENSITIVITY 6.0 <3.5 - 35.0 ng/L [facility] Comment:The Turner high sens itivity Troponin-I results should beused in conjunction with other diagnostic information suchas ECG, clinical observations and information, and patientsymptoms to aid in the diagnosis of MT. 10/07/2025 7:27 PM EST 10/07/2025 7:34 PM EST us Generic External Data Provider LAB BLOOD ORDERAB LES Final Result Performing Organization Address City/State/[facility] Co de Phone Number [facility] [address] [place] [phone] * (ABNORMAL) SARS-CoV-2 RNA, Influenza A/B, and RSV RNA, Ql NAAT (10/07/2025 7:27 PM EST) [facility] Influenza A PCR NEGATIVE Negative [facility] Influenza B PCR NEGATIVE Negative [facility] Resp Syncy Virus RNA Qual PCR NEGATIVE Negative [facility] SARS COV2 PCR POSITIVE(A) Negative [facility] Comment:All test results mus t [...] use by authorized laboratories.Testing performed on the [employer] utilizingreal-time RT-PCR.All SARS CoV2 and positive influenza A/B results arereported to [facility]. 10/07/2025 7:27 PM EST 10/07/2025 7:34 PM EST us Generic External Data Provider LAB MICROBIOLOGY - GENERAL ORDERABLES Final Result [facility] [address] [place] [phone] * (ABNORMAL) CBC auto differential (10/07/2025 7:27 PM EST) Only the most recent of2 resultswithin the time period is included. White Blood Count 6.3 4.8 - 10.8 X10*3/uL [facility] Red Blood Count 3.76(L) 4.60 - 5.80 X10*6/uL [facility] Hemoglobin 12.7(L) 14.0 - 18.0 g/dl [facility] Hematocrit 36.8(L) 42.0 - 52.0 % [facility] Mean Corpuscular Volume 97.9 80.0 - 98.0 fL [facility] Mean Corpuscular Hemoglobin 33.8(H) 27.0 - 33.0 pg [facility] Mean Corpuscular HGB Conc 34.5 31.0 - 36.0 g/dl [facility] Red Cell Distribution Width 11.2 11.0 - 16.0 % [facility] Platelet Count 195 160 - 400 X10*3/uL [facility] Mean Platelet Volume 9.7 9.4 - 12.4 fL [facility] Neutrophils Percent Auto 72.9 45 - 73 % [facility] Imm Gran Pct Auto 0.3 0.0 - 0.4 % [facility] Lymphocytes Percent Auto 19.1(L) 20 - 40 % [facility] Monocytes Percent Auto 7.3 2 - 11 % [facility] Eosinophils Percent Auto 0.2 0 - 4 % [facility] Basophils Percent Auto 0.2 0 - 2 % [facility] NRBC Pct Auto 0.0 0.0 - 0.2 /100WBC [facility] Neutrophils Absolute Auto 4.6 2.0 - 8.3 x10*3/uL [facility] Imm Gran Abs Auto 0.02 0.00 - 0.03 X10*3/uL [facility] Lymphocytes Absolute Auto 1.2 1.2 - 4.9 X10*3/uL [facility] Monocytes Absolute Auto 0.5 0.1 - 1.2 X10*3/uL [facility] Eosinophils Absolute Auto 0.0 0.0 - 0.4 X10*3/uL [facility] Basophils Absolute Auto 0.0 0.0 - 0.2 X10*3/uL [facility] NRBC Abs Auto 0.000 0.0 - 0.012 X10*3/uL [facility] 10/07/2025 7:27 PM EST 10/07/2025 7:34 PM EST Generic External Data Provider LAB BLOOD ORDERAB LES Final Result Performing Organization Address [facility]/ZIP Co de Phone Number [facility] [address] [place] [phone] * Magnesium (10/07/2025 7:27 PM EST) Magnesium 1.9 1.6 - 2.6 mg/dL [facility] 10/07/2025 7:27 PM EST 10/07/2025 7:34 PM EST [employer] External Data Provider LAB BLOOD ORDERAB LES Final Result Performing Organization Address [facility] Co de Phone Number [facility] [address] [place] [phone] * Lipase (10/07/2025 7:27 PM EST) Only the most recent of2 resultswithin the time period is included. Lipase 9 8 - 78 U/L [facility] 10/07/2025 7:27 PM EST 10/07/2025 7:34 PM EST Generic External Data Provider LAB BLOOD ORDERAB LES Final Result Performing Organization Address [facility] Phone Number [facility] [address] [place] [phone] Hepatic Function Panel (10/07/2025 7:27 PM EST) Bilirubin, Total 0.4 0.0 - 1.0 mg/dL [facility] Bilirubin, Direct 0.2 0.0 - 0.5 mg/dL [facility] Aspartate Amino Transferase 26 5 - 37 U/L [facility] Alanine Aminotransferase 13 0 - 40 U/L [facility] Total Protein 7.0 6.5 - 8.0 g/dL [facility] Albumin Level 4.1 3.5 - 5.0 g/dL [facility] Alkaline Phosphatase 80 39 - 117 U/L [facility] 10/07/2025 7:27 PM EST 10/07/2025 7:34 PM EST [employer] External Data Provider LAB BLOOD ORDERAB LES Final Result Performing Organization Address [facility] Phone Number [facility] [address] [place] [phone] * Basic Metabolic Panel (10/07/2025 7:27 PM EST) Sodium 138 135 - 145 mmol/L [facility] Potassium 3.8 3.3 - 5.1 mmol/L [facility] Chloride 104 96 - 108 mmol/L [facility] Carbon Dioxide 25 22 - 29 mmol/L [facility] Anion Gap 13 12 - 20 [facility] Urea Nitrogen (BUN) 10 9 - 16 mg/dL [facility] Creatinine, Serum 0.88 0.5 - 1.4 mg/dL [facility] Creatinine Clr Calc Pharmacy 95.9 [facility] Comment:eGFR (calculated fro m the MDRD study equation) and eCrCl(calculated from the Cockcroft-Gault equation) are based ondifferent parameters and may not yield comparable results.If eCrCl result is absurd, please check patient'sheight/weight. Estimated Glomerular Filt Rate >60 [facility] Comment:Chronic Kidney Disea se: Estimated GFR < 60 mL/min/[id number] Kidney Disease: Estimated GFR < 15 mL/min/1.73m2 Glucose 91 60 - 115 mg/dL [facility] Calcium 8.9 8.4 - 10.2 mg/dL [facility] 10/07/2025 7:27 PM EST 10/07/2025 7:34 PM EST us Generic External Data Provider LAB BLOOD ORDERAB LES Final Result Performing Organization Address City/State/[facility] Co de Phone Number [facility] [address] [place] [phone] * Urinalysis, Complete, with Reflex to Culture (10/06/2025 10:44 PM EST) Color Urine Yellow [facility] Appearance Urine Clear [facility] PH 6.0 5.0 - 9.0 [facility] Glucose Urine UA Negative Negative mg/dL [facility] Urine Blood Negative Negative [facility] Specific [place] - Urine 1.010 1.005 - 1.025 [facility] Urine Protein Negative Neg-Trace mg/dL [facility] Urine Ketones 15 Negative mg/dL [facility] Nitrite Urine Negative Negative [facility] Leukocyte Esterase Urine Negative Negative [facility] RBC Urine 0-2 0 - 2 /HPF [facility] Urine WBC 0-5 0 - 5 /HPF [facility] Urine Squamous Epithelial Cell 0-2 0 - 2 /HPF [facility] Urine Bacteria None Seen None Seen [facility] Hyaline Casts, Urine 0-2 0 - 2 /LPF [facility] 10/06/2025 10:4 4 PM EST 10/06/2025 10:51 PM EST Narrative [facility] - 10/06/2025 11:06 PM EST Urine, Clean Catch us Generic External Data Provider LAB URINE ORDERAB LES Final Result [facility] [address] [place] [phone] * (ABNORMAL) Drug Monitoring, Panel 1, Screen, Urine (10/06/2025 10:44 PM EST) Opiate Screen Urine Not Detected Not Detect [facility] Comment:Opiate cut-off is 30 0 ng/mL.Positive results are unconfirmed and should not be used fornon-medical purposes. Barbiturates, Urine Not Detected Not Detect [facility] Comment:Barbiturate cut-off is 200 ng/mL.Positive results are unconfirmed and should not be used fornon-medical purposes. Phencyclidine Screen Urine Not Detected Not Detect [facility] Comment:Phencyclidine cut-of f is 25 ng/mL.Positive results are unconfirmed and should not be used fornon-medical purposes. Amphetamine Screen Urine Not Detected Not Detect [facility] Comment:Amphetamine cut-off is 1000 ng/mL.Positive results are unconfirmed and should not be used fornon-medical purposes. Benzodiazepines Screen Urine Not Detected Not Detect [facility] Comment:Benzodiazepine cut-o ff is 200 ng/mL.Positive results are unconfirmed and should not be used fornon-medical purposes. Cocaine Screen Urine POSITIVE(A) Not Detect [facility] Comment:Cocaine cut-off is 3 00 ng/mL.Positive results are unconfirmed and should not be used fornon-medical purposes. Cannabinoid Screen Urine Not Detected Not Detect [facility] Comment:Cannabinoid cut-off is 50 ng/mL.Positive results are unconfirmed and should not be used fornon-medical purposes. Methadone Screen, Urine Not Detected Not Detect ng/mL [facility] Comment:Methadone cut-off is 300 ng/mL.Positive results are unconfirmed and should not be used fornon-medical purposes. FENTANYL URINE Not Detected Not Detect [facility] Comment:Fentanyl cut-off is 1 ng/mL.Positive results are unconfirmed and should not be used fornon-medical purposes. Oxycodone Urine Screen Not Detected Not Detect ng/mL [facility] Comment:Oxycodone cut-off is 100 ng/mL.Positive results are unconfirmed and should not be used fornon-medical purposes. Buprenorphine Screen Not Detected Not Detect ng/mL [facility] Comment:Buprenorphine cut-of f is 5 ng/mL.Positive results are unconfirmed and should not be used fornon-medical purposes. 10/06/2025 10:4 4 PM EST 10/06/2025 10:51 PM EST us Generic External Data Provider LAB URINE ORDERAB LES Final Result [facility] [address] [place] [phone] * (ABNORMAL) Comprehensive Metabolic Panel (10/06/2025 10:44 PM EST) Sodium 140 135 - 145 mmol/L [facility] Potassium 4.1 3.3 - 5.1 mmol/L [facility] Chloride 105 96 - 108 mmol/L [facility] Carbon Dioxide 29 22 - 29 mmol/L [facility] Anion Gap 10(L) 12 - 20 [facility] Urea Nitrogen (BUN) 11 9 - 16 mg/dL [facility] Creatinine, Serum 0.97 0.5 - 1.4 mg/dL [facility] Creatinine Clr Calc Pharmacy 87.0 [facility] Comment:eGFR (calculated fro m the MDRD study equation) and eCrCl(calculated from the Cockcroft-Gault equation) are based ondifferent parameters and may not yield comparable results.If eCrCl result is absurd, please check patient'sheight/weight. Estimated Glomerular Filt Rate >60 [facility] Comment:Chronic Kidney Disea se: Estimated GFR < 60 mL/min/[id number] Kidney Disease: Estimated GFR < 15 mL/min/1.73m2 Glucose 95 60 - 115 mg/dL [facility] Calcium 9.3 8.4 - 10.2 mg/dL [facility] Bilirubin, Total 0.3 0.0 - 1.0 mg/dL [facility] Aspartate Amino Transferase 27 5 - 37 U/L [facility] Alanine Aminotransferase 15 0 - 40 U/L [facility] Total Protein 7.2 6.5 - 8.0 g/dL [facility] Albumin Level 4.1 3.5 - 5.0 g/dL [facility] Alkaline Phosphatase 82 39 - 117 U/L [facility] 10/06/2025 10:4 4 PM EST 10/06/2025 10:51 PM EST us Generic External Data Provider LAB BLOOD ORDERAB LES Final Result [facility] [address] [place] [phone] from Last [address] [facility] C3 DENT[facility] MEDICAID STAND ADULT Care Teams Research Administrator Relationship Specialty Start Date End Date Lisset Silva DO [address] [place] [phone] PCP - General Family Medicine 04/10/25
--- OUTSIDE RECORDS SUMMARY | 2025-10-21 03:35 | XMS_ITS | Patient Health Record ---
Author Organization [facility] [place] Address [address] [place] [address] Support Name Relationship Address Phone GENE NORRIS Guarantor Unknown Reason For Referral No Information Plan Of Treatment No Information Insurance Providers Payer Name Payer Address Payer Phone Subscriber Number Group Number Insured Name Patient Relationship to Insured Coverage Start Date Coverage End Date [address] [place] [phone] [id number] GENE NORRIS Self - patient is the insured
--- OUTSIDE RECORDS SUMMARY | 2025-10-21 03:35 | XMS_ITS | Clinical Summary ---
Author Organization [facility] Address [address] [place] [address] Phone Care Team Providers Care Automobile Upholsterer Name Role Phone Physician, Pcp Unknown Primary [...] 01/24/2025 Insurance MEDICAID - [place] Care Teams Automobile Upholsterer Relationship Specialty Start Date End Date Physician, Pcp Unknown PCP - General 01/24/25
== END 2025-10-21 03:30 | disposition left against medical advice (07) ==
LOC: HO.ED 03:32
PROVIDERS: Physician Assistant Medical; Emergency Provider Emergency Medicine
DX: R07.89 Other chest pain (principal); F14.90 Cocaine use, unspecified, uncomplicated
CPT/HCPCS: 36415; 71045; 80053; 80307; 83735; 84484; 85025; 93005; 99283; 99284

== ENCOUNTER → 2025-10-21 00:11 | Outpatient (BNV) | payer MEDICAID, SELFPAY | PROVIDERS: Emergency Provider Emergency Medicine; Visit Provider Internal Medicine Cardiovascular Disease | DX: R07.9 Chest pain, unspecified (principal) | CPT/HCPCS: 93010 ==